=== PATIENT | female | born 1940 | race Caucasian/White ===

== ENCOUNTER 2018-06-11 19:08 | Emergency (ER) | payer MEDICARE, OTHER ==
[~2018-06-11] VITALS: Ht 157.5 cm; Wt 54.4 kg
[2018-06-11 19:37] VITALS: BP 183/60
[2018-06-11] MEDS ORDERED: KETOROLAC TROMETH 60MG/2ML VIAL IM ONE (22:15)
== END 2018-06-11 23:14 | disposition home or self-care (01) ==
LOC: ER 19:12
DX: S13.4XXA Sprain of ligaments of cervical spine, initial encounter (principal); R51 Headache; V49.49XA Driver injured in collision with other motor vehicles in traffic accident, initial encounter; Y93.I9 Activity, other involving external motion; Y92.89 Other specified places as the place of occurrence of the external cause; Y99.8 Other external cause status
CPT/HCPCS: 70450; 72125; 96372; 99284; J1885

== ENCOUNTER 2021-07-22 22:35 | Emergency (ER) | payer OTHER ==
[~2021-07-22] VITALS: Ht 157.5 cm; Wt 52.2 kg
[2021-07-22] MEDS ORDERED: fentaNYL CITRATE 100 MCG/2 ML VL IV ONE (23:00)
[2021-07-22 23:11] LABS: Basophils # (auto) 0.1 10 ^3/uL (0-0.2); Basophils % (auto) 0.7 % (0.0-2.0); Eosinophils # (auto) 0.1 10 ^3/uL (0-0.8); Eosinophils % (auto) 1.2 % (0.0-7.0); Hematocrit 38.8 % (36.0-46.0); Hemoglobin 13.2 g/dL (12.2-16.2); Lymphocytes # (auto) 3.1 10 ^3/uL (0.4-5.4); Lymphocytes % (auto) 32.4 % (10.0-50.0); Mean Corpuscular Hemoglobin 27.8 pg (28.0-32.0); Mean Corpuscular Hgb Conc. 34.1 g/dL (32.0-36.0); Mean Corpuscular Volume 81.5 fL (80.0-100.0); Monocytes # (auto) 0.5 10 ^3/uL (0-1.3); Monocytes % (auto) 5.8 % (0.0-12.0); Neutrophils # (auto) 5.7 10 ^3/uL (1.6-8.6); Neutrophils % (auto) 59.9 % (37.0-80.0); Nucleated Red Blood Cells % 0.2 %; Red Blood Cells 4.76 10^6/uL (4.0-5.20); Red Cell Distribution Width 14.3 % (11.8-14.3); White Blood Cell 9.5 10^3/uL (4.4-10.8)
[2021-07-22 23:26] LABS: Albumin 3.9 g/dL (3.4-5.0); Calcium 9.6 mg/dL (8.5-10.1); Potassium 4.1 mmol/L (3.5-5.1)
[2021-07-22 23:28] LABS: BUN/Creatinine Ratio 22.6
[2021-07-22 23:30] LABS: Bilirubin, Total 0.4 mg/dL (0.2-1.0); Total Protein 7.2 g/dL (6.4-8.2)
[2021-07-23] MEDS ORDERED: SODIUM CHLORIDE 0.9% 1,000 ML IV ONE (01:15)
[2021-07-23] MEDS ORDERED: fentaNYL CITRATE 100 MCG/2 ML VL IV ONE ×2 (01:45→07:45)
[2021-07-23 05:08] LABS: Urine Bacteria NONE SEEN /hpf (None Seen); Urine Blood Negative /uL (Negative); Urine Specific Gravity 1.021 (1.001-1.035); Urine WBC 42 /hpf (0 - 5)
[2021-07-23] MEDS ORDERED: cefTRIAXone 1GM/50ML D5W 50 ML IV ONE (06:00)
[2021-07-23] MEDS ORDERED: NITR-87 PO (06:01)
[2021-07-23 10:00] VITALS: BP 149/56
[2021-07-23] MEDS ORDERED: TRAM50TA2 PO ×2 (14:35→16:03)
== END 2021-07-23 13:44 | disposition home or self-care (01) ==
LOC: ER 22:35
DX: N39.0 Urinary tract infection, site not specified (principal); E11.9 Type 2 diabetes mellitus without complications; E78.5 Hyperlipidemia, unspecified; I10 Essential (primary) hypertension; Z87.442 Personal history of urinary calculi
CPT/HCPCS: 36415; 74176; 76775; 80053; 81001; 84484; 85025; 87426; 96361; 96365; 96375; 96376; 99285; J0696; J3010; J7030

== ENCOUNTER 2022-01-30 12:09 | Inpatient (IN) | payer OTHER ==
[~2022-01-30] VITALS: Ht 157.5 cm; Wt 54.1 kg
[~2022-01-30 12:09] MED LIST: NITR-87 PO; TRAM50TA2 PO
[2022-01-30 13:29] LABS: Basophils # (auto) 0 10 ^3/uL (0-0.2); Basophils % (auto) 0.3 % (0.0-2.0); Eosinophils # (auto) 0 10 ^3/uL (0-0.8); Eosinophils % (auto) 0.2 % (0.0-7.0); Hematocrit 41.9 % (36.0-46.0); Hemoglobin 13.9 g/dL (12.2-16.2); Lymphocytes # (auto) 1.5 10 ^3/uL (0.4-5.4); Lymphocytes % (auto) 14.9 % (10.0-50.0); Mean Corpuscular Hemoglobin 27.8 pg (28.0-32.0); Mean Corpuscular Hgb Conc. 33.3 g/dL (32.0-36.0); Mean Corpuscular Volume 83.4 fL (80.0-100.0); Monocytes # (auto) 0.4 10 ^3/uL (0-1.3); Monocytes % (auto) 4.1 % (0.0-12.0); Neutrophils # (auto) 8.1 10 ^3/uL (1.6-8.6); Neutrophils % (auto) 80.5 % (37.0-80.0); Red Blood Cells 5.02 10^6/uL (4.0-5.20); Red Cell Distribution Width 14.4 % (11.8-14.3); White Blood Cell 10.1 10^3/uL (4.4-10.8)
[2022-01-30 13:56] LABS: Albumin 3.8 g/dL (3.4-5.0); BUN/Creatinine Ratio 26.2; Calcium 9.5 mg/dL (8.5-10.1); Potassium 4.8 mmol/L (3.5-5.1); Total Protein 7.3 g/dL (6.4-8.2)
[2022-01-30] MEDS ORDERED: TETANUS-DIPTH-ACEL PERTUSSIS 0.5ML SYR Tdap IM ONE (18:00)
[2022-01-30] MEDS ORDERED: LIDOCAINE 1% HCL (LOCAL ANESTH.) INJ 20ML MDV IJ ONE (18:00)
[2022-01-30] MEDS ORDERED: cefTRIAXone 1GM/50ML D5W 50 ML IV ONE (18:00)
[2022-01-30] MEDS ORDERED: HYDROcodone-ACET 5/325MG TAB PO ONE (19:45)
[2022-01-30] MEDS ORDERED: DOCUSATE SOD 100 MG CAP PO PRN (22:00)
[2022-01-30] MEDS ORDERED: ONDANSETRON HCL 4 MG/2 ML VIAL IV PRN (22:00)
[2022-01-30] MEDS ORDERED: ACETAMINOPHEN 325 MG TAB PO PRN (22:00)
[2022-01-30] MEDS ORDERED: DEXTROSE (50%) 50ML SYRG IV PRN (22:15)
[2022-01-30] MEDS: FAMOTIDINE (10MG/ML) 2ML VL IV SCH (22:27)
[2022-01-30] MEDS: HYDROcodone-ACET 5/325MG TAB PO PRN (22:27)
[2022-01-30] MEDS: SODIUM CHLOR 0.9% PF (SALINE LOCK) 10ML VIAL/SYR IV SCH (23:22)
[2022-01-30] MEDS ORDERED: NITROGLYCERIN 0.4 MG SL TAB SL PRN (23:45)
[2022-01-30] MEDS ORDERED: MORPHINE SULFATE INJ 2 MG/ml SYRG IV PRN (23:45)
[2022-01-31] MEDS: HYDROcodone-ACET 5/325MG TAB PO PRN ×2 (05:15→14:39)
[2022-01-31 06:04] LABS: Basophils # (auto) 0.1 10 ^3/uL (0-0.2); Basophils % (auto) 0.6 % (0.0-2.0); Eosinophils # (auto) 0.1 10 ^3/uL (0-0.8); Eosinophils % (auto) 1.3 % (0.0-7.0); Hematocrit 37.9 % (36.0-46.0); Hemoglobin 13.1 g/dL (12.2-16.2); Lymphocytes # (auto) 2.4 10 ^3/uL (0.4-5.4); Lymphocytes % (auto) 30.6 % (10.0-50.0); Mean Corpuscular Hemoglobin 28.5 pg (28.0-32.0); Mean Corpuscular Hgb Conc. 34.4 g/dL (32.0-36.0); Mean Corpuscular Volume 82.8 fL (80.0-100.0); Monocytes # (auto) 0.5 10 ^3/uL (0-1.3); Monocytes % (auto) 6.9 % (0.0-12.0); Neutrophils # (auto) 4.8 10 ^3/uL (1.6-8.6); Neutrophils % (auto) 60.6 % (37.0-80.0); Nucleated Red Blood Cells % 0.2 %; Red Blood Cells 4.58 10^6/uL (4.0-5.20); Red Cell Distribution Width 14.4 % (11.8-14.3); White Blood Cell 7.9 10^3/uL (4.4-10.8)
[2022-01-31] MEDS: SODIUM CHLOR 0.9% PF (SALINE LOCK) 10ML VIAL/SYR IV SCH ×3 (06:24→22:00)
[2022-01-31 06:27] LABS: Albumin 3.4 g/dL (3.4-5.0); BUN/Creatinine Ratio 31.3; Calcium 9.1 mg/dL (8.5-10.1)
[2022-01-31 06:30] LABS: Bilirubin, Total 0.9 mg/dL (0.2-1.0); Total Protein 6.5 g/dL (6.4-8.2)
[2022-01-31] MEDS: InsuLIN REG 1unit/0.01ml Soln (100units/ml) SC SCH ×4 (07:00→22:00)
[2022-01-31] MEDS: ACCU-CHEK COMFORT CURVE STRIP VI SCH ×4 (07:11→22:03)
[2022-01-31] MEDS: FAMOTIDINE (10MG/ML) 2ML VL IV SCH ×2 (09:42→22:00)
[2022-01-31 10:51] VITALS: BP 120/43
[2022-01-31] MEDS ORDERED: LISINOPRIL 20 MG TAB PO SCH (13:45)
[2022-01-31] MEDS ORDERED: ALBUTEROL SULF HFA 90MCG INH 200DOSE IN SCH (14:00)
[2022-01-31] MEDS ORDERED: ALBUTEROL SULF 2.5 MG/0.5ML(0.5%) NEB SOLN NEB SCH (14:00)
[2022-01-31 19:32] VITALS: BP 150/108
[2022-01-31] MEDS ORDERED: LISI20TA28 PO (20:00)
[2022-01-31] MEDS ORDERED: NITR100C6 PO (20:00)
[2022-01-31] MEDS ORDERED: SIMV-8 PO (20:00)
[2022-01-31] MEDS ORDERED: NAP500T PO (20:00)
[2022-01-31] MEDS ORDERED: GLIP-110 PO (20:00)
[2022-01-31 22:00] VITALS: BP 156/57
[2022-01-31] MEDS ORDERED: ATORVASTATIN 20 MG TAB PO SCH (22:00)
[2022-01-31] MEDS ORDERED: hydrALAZINE HCL 20 MG/ML VL IV PRN (22:00)
[2022-02-01] MEDS ORDERED: cefTRIAXone 1GM/50ML D5W 50 ML IV SCH (09:00)
[2022-02-01] MEDS ORDERED: ENOXAPARIN SOD 40 MG/0.4 ML SYRINGE SC SCH (10:00)
== END 2022-01-31 22:30 | disposition left against medical advice (07) | DRG 312 ==
LOC: ER 12:12 → TELE 23:44 → TELE-WESTW 01-31 18:32
PROVIDERS: ADMIT Nurse Practitioner Family; ATTEND Nurse Practitioner Family
DX: R55 Syncope and collapse (principal); Z20.822 Contact with and (suspected) exposure to COVID-19; Z53.29 Procedure and treatment not carried out because of patient's decision for other reasons; E11.9 Type 2 diabetes mellitus without complications; E78.5 Hyperlipidemia, unspecified; S09.90XA Unspecified injury of head, initial encounter; I10 Essential (primary) hypertension; W18.39XA Other fall on same level, initial encounter; J44.9 Chronic obstructive pulmonary disease, unspecified; Z87.442 Personal history of urinary calculi; Y93.89 Activity, other specified; Y92.89 Other specified places as the place of occurrence of the external cause; Y99.8 Other external cause status; S01.81XA Laceration without foreign body of other part of head, initial encounter
CPT/HCPCS: 12002; 36415; 70450; 70551; 71045; 80053; 82962; 84484; 85025; 87426; 90471; 90715; 93005; 93306; 94640; 96365; G0378; J0696; J2001; J3490

== ENCOUNTER 2022-02-09 17:14 | Emergency (ER) | payer OTHER ==
[~2022-02-09] VITALS: Ht 157.5 cm; Wt 54.8 kg
[~2022-02-09 17:14] MED LIST changes: +GLIP-110 PO; +LISI20TA28 PO; +NAP500T PO; +NITR100C6 PO; +SIMV-8 PO
[2022-02-09 18:31] VITALS: BP 157/77
== END 2022-02-09 20:40 | disposition home or self-care (01) ==
LOC: ER 17:14
DX: S01.81XD Laceration without foreign body of other part of head, subsequent encounter (principal); E78.5 Hyperlipidemia, unspecified; I10 Essential (primary) hypertension; Z87.442 Personal history of urinary calculi; W22.8XXD Striking against or struck by other objects, subsequent encounter; E11.9 Type 2 diabetes mellitus without complications

== ENCOUNTER 2022-08-27 15:16 | Inpatient (IN) | payer OTHER ==
[~2022-08-27] VITALS: Ht 165.1 cm; Wt 51.7 kg
[~2022-08-27 15:16] MED LIST changes: -LISI20TA28 PO; +LISI20TA56 PO; -SIMV-8 PO; +SIMV20TA20 PO
[2022-08-27] MEDS ORDERED: ONDANSETRON HCL 4 MG/2 ML VIAL IV ONE (19:30)
[2022-08-27] MEDS ORDERED: HYDROmorphone HCL 2 MG/ML VL/or syr IV ONE (19:30)
[2022-08-27 20:13] LABS: Basophils # (auto) 0.1 10 ^3/uL (0-0.2); Basophils % (auto) 0.3 % (0.0-2.0); Eosinophils # (auto) 0 10 ^3/uL (0-0.8); Hematocrit 41.3 % (36.0-46.0); Hemoglobin 13.9 g/dL (12.2-16.2); Lymphocytes # (auto) 1.2 10 ^3/uL (0.4-5.4); Mean Corpuscular Hemoglobin 27.9 pg (28.0-32.0); Mean Corpuscular Hgb Conc. 33.6 g/dL (32.0-36.0); Mean Corpuscular Volume 82.9 fL (80.0-100.0); Monocytes # (auto) 1.3 10 ^3/uL (0-1.3); Monocytes % (auto) 7.8 % (0.0-12.0); Neutrophils # (auto) 14.7 10 ^3/uL (1.6-8.6); Neutrophils % (auto) 84.9 % (37.0-80.0); Red Blood Cells 4.99 10^6/uL (4.0-5.20); Red Cell Distribution Width 14.1 % (11.8-14.3); White Blood Cell 17.3 10^3/uL (4.4-10.8)
[2022-08-27 20:18] LABS: Urine Bacteria NONE SEEN /hpf (None Seen); Urine Blood TRACE /uL (Negative); Urine Mucus FEW (None Seen); Urine Specific Gravity 1.021 (1.001-1.035); Urine WBC 2 /hpf (0 - 5)
[2022-08-27 20:45] LABS: BUN/Creatinine Ratio 40.8 (10.0-20.0); Calcium 9.5 mg/dL (8.5-10.1); Potassium 3.9 mmol/L (3.5-5.1)
[2022-08-27 20:50] LABS: Barbiturate Scree,Urine NEGATIVE (NEGATIVE); Cannabinoid Screen, Urine NEGATIVE (NEGATIVE)
[2022-08-27 20:58] LABS: Amphetamine Screen, Urine NEGATIVE (NEGATIVE); Benzodiazephine Screen, Urine POSITIVE (NEGATIVE); Cocaine Screen, Urine NEGATIVE (NEGATIVE); Opiate Scree,Urine NEGATIVE (NEGATIVE); Phencyclidine Screen, Urine NEGATIVE (NEGATIVE)
[2022-08-27] MEDS ORDERED: SODIUM CHLORIDE 0.9% 1,000 ML IV ONE (21:45)
[2022-08-27] MEDS ORDERED: NALOXONE HCL 0.4 MG/ML VIAL IV ONE (21:45)
[2022-08-27] MEDS ORDERED: ACETAMINOPHEN 650 MG RECT SUPP PR ONE (21:45)
[2022-08-27] MEDS ORDERED: cefTRIAXone 1GM/50ML D5W 50 ML IV ONE (22:00)
[2022-08-27] MEDS ORDERED: DEXTROSE (50%) 50ML SYRG IV PRN (23:45)
[2022-08-27] MEDS ORDERED: levoFLOXacin 500MG 100 ML IV ONE (23:45)
[2022-08-27] MEDS ORDERED: hydrALAZINE HCL 20 MG/ML VL IV PRN (23:45)
[2022-08-27] MEDS ORDERED: VANCOMYCIN PER PHARMACY 0 MG IV SCH (23:45)
[2022-08-27] MEDS ORDERED: ACETAMINOPHEN 650 MG RECT SUPP PR PRN (23:45)
[2022-08-27] MEDS ORDERED: ONDANSETRON HCL 4 MG/2 ML VIAL IV PRN (23:45)
[2022-08-28] MEDS ORDERED: VANCOMYCIN 1GM/250ML 250 ML IV ONE (00:15)
[2022-08-28 06:27] LABS: Basophils # (auto) 0.1 10 ^3/uL (0-0.2); Basophils % (auto) 0.4 % (0.0-2.0); Eosinophils # (auto) 0 10 ^3/uL (0-0.8); Hematocrit 38.3 % (36.0-46.0); Lymphocytes # (auto) 1.5 10 ^3/uL (0.4-5.4); Lymphocytes % (auto) 10.2 % (10.0-50.0); Mean Corpuscular Hemoglobin 27.8 pg (28.0-32.0); Mean Corpuscular Hgb Conc. 33.9 g/dL (32.0-36.0); Monocytes # (auto) 1.3 10 ^3/uL (0-1.3); Monocytes % (auto) 8.6 % (0.0-12.0); Neutrophils # (auto) 11.9 10 ^3/uL (1.6-8.6); Neutrophils % (auto) 80.8 % (37.0-80.0); Red Blood Cells 4.67 10^6/uL (4.0-5.20); White Blood Cell 14.7 10^3/uL (4.4-10.8)
[2022-08-28 06:46] LABS: Potassium 3.8 mmol/L (3.5-5.1)
[2022-08-28 06:50] LABS: BUN/Creatinine Ratio 46.8 (10.0-20.0)
[2022-08-28] MEDS: InsuLIN REG 1unit/0.01ml Soln (100units/ml) SC SCH ×4 (06:56→22:05)
[2022-08-28] MEDS: ACCU-CHEK COMFORT CURVE STRIP VI SCH ×4 (06:56→22:03)
[2022-08-28] MEDS ORDERED: LORazepam 2MG/ML-1ML VIAL IV PRN (17:00)
[2022-08-28] MEDS: VANCOMYCIN 1GM/250ML 250 ML IV SCH (21:59)
[2022-08-29] MEDS: ACCU-CHEK COMFORT CURVE STRIP VI SCH ×4 (06:36→22:11)
[2022-08-29] MEDS: InsuLIN REG 1unit/0.01ml Soln (100units/ml) SC SCH ×4 (06:40→22:00)
[2022-08-29 08:06] LABS: Basophils # (auto) 0 10 ^3/uL (0-0.2); Basophils % (auto) 0.1 % (0.0-2.0); Eosinophils # (auto) 0 10 ^3/uL (0-0.8); Hemoglobin 12.7 g/dL (12.2-16.2); Lymphocytes # (auto) 1.3 10 ^3/uL (0.4-5.4); Lymphocytes % (auto) 9.6 % (10.0-50.0); Mean Corpuscular Hemoglobin 28.1 pg (28.0-32.0); Mean Corpuscular Hgb Conc. 34.4 g/dL (32.0-36.0); Mean Corpuscular Volume 81.8 fL (80.0-100.0); Monocytes # (auto) 0.5 10 ^3/uL (0-1.3); Monocytes % (auto) 4.1 % (0.0-12.0); Neutrophils # (auto) 11.6 10 ^3/uL (1.6-8.6); Neutrophils % (auto) 86.2 % (37.0-80.0); Red Blood Cells 4.52 10^6/uL (4.0-5.20); Red Cell Distribution Width 13.9 % (11.8-14.3); White Blood Cell 13.5 10^3/uL (4.4-10.8)
[2022-08-29 08:28] LABS: Calcium 9.1 mg/dL (8.5-10.1); Potassium 3.8 mmol/L (3.5-5.1)
[2022-08-29 13:30] VITALS: BP 166/66
[2022-08-29 14:30] VITALS: BP 177/68
[2022-08-29 16:30] VITALS: BP 156/62
[2022-08-29 17:00] VITALS: BP 156/62
[2022-08-29] MEDS: VANCOMYCIN 1GM/250ML 250 ML IV SCH (22:11)
[2022-08-29 22:21] VITALS: BP 130/69
[2022-08-30 05:42] LABS: Basophils # (auto) 0 10 ^3/uL (0-0.2); Basophils % (auto) 0.2 % (0.0-2.0); Eosinophils # (auto) 0 10 ^3/uL (0-0.8); Eosinophils % (auto) 0.1 % (0.0-7.0); Hemoglobin 13.3 g/dL (12.2-16.2); Lymphocytes # (auto) 1.4 10 ^3/uL (0.4-5.4); Lymphocytes % (auto) 10.9 % (10.0-50.0); Mean Corpuscular Hemoglobin 28.1 pg (28.0-32.0); Mean Corpuscular Hgb Conc. 34.1 g/dL (32.0-36.0); Mean Corpuscular Volume 82.5 fL (80.0-100.0); Monocytes # (auto) 0.8 10 ^3/uL (0-1.3); Neutrophils # (auto) 10.8 10 ^3/uL (1.6-8.6); Neutrophils % (auto) 82.8 % (37.0-80.0); Red Blood Cells 4.73 10^6/uL (4.0-5.20); Red Cell Distribution Width 13.8 % (11.8-14.3); White Blood Cell 13.1 10^3/uL (4.4-10.8)
[2022-08-30 05:54] VITALS: BP 146/71
[2022-08-30 05:55] LABS: Calcium 9.6 mg/dL (8.5-10.1); Potassium 3.7 mmol/L (3.5-5.1)
[2022-08-30 05:58] LABS: BUN/Creatinine Ratio 46.9 (10.0-20.0)
[2022-08-30] MEDS: InsuLIN REG 1unit/0.01ml Soln (100units/ml) SC SCH ×4 (07:00→22:28)
[2022-08-30] MEDS: ACCU-CHEK COMFORT CURVE STRIP VI SCH ×4 (07:00→22:29)
[2022-08-30 09:00] VITALS: BP 149/63
[2022-08-30 09:24] LABS: Folate (Folic Acid) 5.59 ng/mL (5.38-24)
[2022-08-30 13:00] VITALS: BP 148/62
[2022-08-30 17:00] VITALS: BP 147/60
[2022-08-30 22:00] VITALS: BP 143/59
[2022-08-30] MEDS: VANCOMYCIN 1GM/250ML 250 ML IV SCH (22:29)
[2022-08-31 05:00] VITALS: BP 123/44
[2022-08-31] MEDS: ACCU-CHEK COMFORT CURVE STRIP VI SCH ×3 (06:25→17:00)
[2022-08-31] MEDS: InsuLIN REG 1unit/0.01ml Soln (100units/ml) SC SCH ×3 (06:32→17:00)
[2022-08-31 11:06] VITALS: BP 140/53
[2022-08-31] MEDS ORDERED: VANCOMYCIN 1GM/250ML 250 ML IV SCH (14:00)
[2022-08-31 14:29] VITALS: BP 140/53
== END 2022-08-31 18:50 | disposition home health service (06) | DRG 92 ==
LOC: EDBD 15:16 → ER 15:16 → TELE 23:40 → TELE-EAST 08-29 13:08
PROVIDERS: ADMIT Nurse Practitioner Family; ATTEND Internal Medicine
DX: G92.8 Other toxic encephalopathy (principal); S42.301A Unspecified fracture of shaft of humerus, right arm, initial encounter for closed fracture; D72.829 Elevated white blood cell count, unspecified; E86.0 Dehydration; I10 Essential (primary) hypertension; S09.90XA Unspecified injury of head, initial encounter; W18.39XA Other fall on same level, initial encounter; E11.9 Type 2 diabetes mellitus without complications; E78.5 Hyperlipidemia, unspecified; Z87.442 Personal history of urinary calculi; Z80.0 Family history of malignant neoplasm of digestive organs; Z83.3 Family history of diabetes mellitus; Y93.89 Activity, other specified; Y92.89 Other specified places as the place of occurrence of the external cause; Y99.8 Other external cause status; Z88.5 Allergy status to narcotic agent
CPT/HCPCS: 36415; 70450; 70551; 71045; 71250; 72125; 73130; 73200; 74176; 80048; 80202; 80307; 80320; 81001; 82140; 82607; 82746; 82962; 83605; 83690; 84443; 85025; 87040; 87086; 93005; 95819; 96361; 96365; 96375; 97110; 97116; 97163; 97530; G0378; J0696; J1815; J1956; J2405

== ENCOUNTER 2022-09-20 11:32 | Observation (INO) | payer OTHER ==
[~2022-09-20] VITALS: Ht 167.6 cm; Wt 45.0 kg
[~2022-09-20 11:32] MED LIST changes: -NAP500T PO; -NITR-87 PO; -NITR100C6 PO
[2022-09-20] MEDS ORDERED: SODIUM CHLORIDE 0.9% 500 ML IVB ONE (11:45)
[2022-09-20 12:12] LABS: Basophils # (auto) 0 10 ^3/uL (0-0.2); Eosinophils # (auto) 0 10 ^3/uL (0-0.8); Lymphocytes # (auto) 1.1 10 ^3/uL (0.4-5.4)
[2022-09-20 12:13] LABS: Basophils % (auto) 0.3 % (0.0-2.0); Hemoglobin 12.3 g/dL (12.2-16.2); Lymphocytes % (auto) 9.4 % (10.0-50.0); Mean Corpuscular Hemoglobin 27.2 pg (28.0-32.0); Mean Corpuscular Hgb Conc. 32.5 g/dL (32.0-36.0); Mean Corpuscular Volume 83.7 fL (80.0-100.0); Monocytes % (auto) 8.6 % (0.0-12.0); Neutrophils # (auto) 9.8 10 ^3/uL (1.6-8.6); Neutrophils % (auto) 81.7 % (37.0-80.0); Red Blood Cells 4.54 10^6/uL (4.0-5.20); Red Cell Distribution Width 14.1 % (11.8-14.3)
[2022-09-20 12:25] LABS: INR 1.21 (0.9-1.15); Partial Thromboplastin Time 40.5 SEC (24.5-34.5)
[2022-09-20 12:34] LABS: Anion Gap 10 (5-15); BUN/Creatinine Ratio 38.5 (10.0-20.0); Blood Urea Nitrogen 30 mg/dL (7-18); Carbon Dioxide 21 mmol/L (21-32); Chloride 106 mmol/L (98-107); GFR African American 91 mL/min; Glucose 146 mg/dL (74-106); Potassium 3.9 mmol/L (3.5-5.1); Sodium 137 mmol/L (136-145)
[2022-09-20 12:35] LABS: Alanine Aminotransferase 14 U/L (13-56); Albumin 2.5 g/dL (3.4-5.0); Calcium 8.8 mg/dL (8.5-10.1); GFR Non-African American 75 mL/min; Magnesium 1.8 mg/dL (1.6-2.6)
[2022-09-20 12:38] LABS: Alkaline Phosphatase 72 U/L (45-117); Aspartate Aminotransferase 26 U/L (15-37); Bilirubin, Total 1.1 mg/dL (0.2-1.0); Total Protein 6.9 g/dL (6.4-8.2)
[2022-09-20 12:48] LABS: Blood Alcohol < 3.0 mg/dL (<10)
[2022-09-20 17:52] LABS: Urine Bacteria NONE SEEN /hpf (None Seen); Urine Blood Negative /uL (Negative); Urine Mucus MODERATE (None Seen); Urine Specific Gravity 1.021 (1.001-1.035); Urine WBC 6 /hpf (0 - 5)
[2022-09-20] MEDS ORDERED: NITROGLYCERIN 0.4 MG SL TAB SL PRN (22:15)
[2022-09-20] MEDS ORDERED: DOCUSATE SOD 100 MG CAP PO PRN (22:15)
[2022-09-20] MEDS ORDERED: MORPHINE SULFATE INJ 2 MG/ml SYRG IV PRN (22:15)
[2022-09-20] MEDS ORDERED: ONDANSETRON HCL 4 MG/2 ML VIAL IV PRN (22:15)
[2022-09-20] MEDS ORDERED: ACETAMINOPHEN 325 MG TAB PO PRN (22:15)
[2022-09-20 23:53] LABS: Alcohol, Urine < 3.0 mg/dL (0-10); Amphetamine Screen, Urine NEGATIVE (NEGATIVE); Barbiturate Scree,Urine NEGATIVE (NEGATIVE); Benzodiazephine Screen, Urine POSITIVE (NEGATIVE); Cannabinoid Screen, Urine NEGATIVE (NEGATIVE); Cocaine Screen, Urine NEGATIVE (NEGATIVE)
[2022-09-21 00:05] LABS: Opiate Scree,Urine NEGATIVE (NEGATIVE); Phencyclidine Screen, Urine NEGATIVE (NEGATIVE)
[2022-09-21] MEDS ORDERED: DEXTROSE (50%) 50ML SYRG IV PRN (02:15)
[2022-09-21] MEDS: ACCU-CHEK COMFORT CURVE STRIP VI SCH ×4 (05:08→22:23)
[2022-09-21 06:17] LABS: Basophils # (auto) 0 10 ^3/uL (0-0.2); Basophils % (auto) 0.3 % (0.0-2.0); Eosinophils # (auto) 0 10 ^3/uL (0-0.8); Eosinophils % (auto) 0.1 % (0.0-7.0); Hematocrit 38.1 % (36.0-46.0); Hemoglobin 12.7 g/dL (12.2-16.2); Lymphocytes # (auto) 0.8 10 ^3/uL (0.4-5.4); Lymphocytes % (auto) 7.5 % (10.0-50.0); Mean Corpuscular Hemoglobin 27.6 pg (28.0-32.0); Mean Corpuscular Hgb Conc. 33.4 g/dL (32.0-36.0); Mean Corpuscular Volume 82.7 fL (80.0-100.0); Monocytes # (auto) 0.8 10 ^3/uL (0-1.3); Monocytes % (auto) 7.4 % (0.0-12.0); Neutrophils # (auto) 9.5 10 ^3/uL (1.6-8.6); Neutrophils % (auto) 84.7 % (37.0-80.0); Nucleated Red Blood Cells % 0.1 %; Red Blood Cells 4.61 10^6/uL (4.0-5.20); Red Cell Distribution Width 14.3 % (11.8-14.3); White Blood Cell 11.3 10^3/uL (4.4-10.8)
[2022-09-21 06:48] LABS: Calcium 9.8 mg/dL (8.5-10.1); Potassium 4.1 mmol/L (3.5-5.1)
[2022-09-21 06:50] LABS: BUN/Creatinine Ratio 46.8 (10.0-20.0)
[2022-09-21] MEDS: InsuLIN REG 1unit/0.01ml Soln (100units/ml) SC SCH ×4 (06:59→22:00)
[2022-09-21] MEDS: ENOXAPARIN SOD 40 MG/0.4 ML SYRINGE SC SCH (10:00)
[2022-09-22 06:24] LABS: Basophils # (auto) 0 10 ^3/uL (0-0.2); Basophils % (auto) 0.2 % (0.0-2.0); Eosinophils # (auto) 0 10 ^3/uL (0-0.8); Eosinophils % (auto) 0.1 % (0.0-7.0); Hematocrit 36.5 % (36.0-46.0); Hemoglobin 12.5 g/dL (12.2-16.2); Lymphocytes # (auto) 1.1 10 ^3/uL (0.4-5.4); Lymphocytes % (auto) 10.5 % (10.0-50.0); Mean Corpuscular Hemoglobin 28.1 pg (28.0-32.0); Mean Corpuscular Hgb Conc. 34.1 g/dL (32.0-36.0); Mean Corpuscular Volume 82.2 fL (80.0-100.0); Monocytes # (auto) 0.5 10 ^3/uL (0-1.3); Monocytes % (auto) 5.1 % (0.0-12.0); Neutrophils # (auto) 8.6 10 ^3/uL (1.6-8.6); Neutrophils % (auto) 84.1 % (37.0-80.0); Nucleated Red Blood Cells % 0.1 %; Red Blood Cells 4.44 10^6/uL (4.0-5.20); Red Cell Distribution Width 14.4 % (11.8-14.3); White Blood Cell 10.2 10^3/uL (4.4-10.8)
[2022-09-22] MEDS: ACCU-CHEK COMFORT CURVE STRIP VI SCH ×2 (06:30→11:47)
[2022-09-22] MEDS: InsuLIN REG 1unit/0.01ml Soln (100units/ml) SC SCH ×2 (06:30→11:52)
[2022-09-22 06:37] LABS: Potassium 3.8 mmol/L (3.5-5.1)
[2022-09-22 06:42] LABS: BUN/Creatinine Ratio 66.1 (10.0-20.0); Calcium 10.1 mg/dL (8.5-10.1)
[2022-09-22] MEDS: ENOXAPARIN SOD 40 MG/0.4 ML SYRINGE SC SCH (10:00)
[2022-09-22 14:30] VITALS: BP 168/67
[2022-09-23 05:07] LABS: RPR Non Reactive (Non Reactive)
== END 2022-09-22 15:51 | disposition still patient (30) ==
LOC: EDBD 11:32 → ER 11:32 → TELE 22:24
PROVIDERS: ADMIT Nurse Practitioner Family; ATTEND Nurse Practitioner Family
DX: G92.8 Other toxic encephalopathy (principal); E11.9 Type 2 diabetes mellitus without complications; D72.829 Elevated white blood cell count, unspecified; E03.9 Hypothyroidism, unspecified; I10 Essential (primary) hypertension; E78.5 Hyperlipidemia, unspecified; G89.29 Other chronic pain; M54.50 Low back pain, unspecified; F03.90 Unspecified dementia, unspecified severity, without behavioral disturbance, psychotic disturbance, mood disturbance, and anxiety; Z91.81 History of falling; Z79.899 Other long term (current) drug therapy
CPT/HCPCS: 36415; 70450; 70551; 71045; 74176; 80048; 80053; 80307; 80320; 81001; 82140; 82607; 82962; 83605; 83735; 84443; 84484; 85025; 85610; 85730; 86592; 87040; 93005; 96360; 96361; 96372; 99285; G0378; J1650; J1815; J7040

== ENCOUNTER 2024-08-03 16:50 | Inpatient (IN) | payer OTHER ==
[~2024-08-03] VITALS: Ht 157.5 cm; Wt 47.4 kg
[2024-08-03] MEDS: SODIUM CHLORIDE 0.9% 1,000 ML IV ONE (17:00)
--- NOTE | 2024-08-03 17:40 | ED.PDOC ---
General HPI Comments 84 year old female presents to the ED via EMS with a chief complaint of RT flank pain onset 2 days. PMHx kidney stone, DM, HTN, HLD. Per EMS, patient has been experiencing RT flank pain as well as dysuria, dark yellow urine for the past 2 days. Denies fever, chills, abdominal pain, nausea, vomiting, diarrhea. No other symptoms or modifying factors present at this time. Patient was mildly hypertensive at arrival. Chief Complaint: Flank Pain Time Seen by MD: 17:25 Primary Care Provider: LARY SANTIAGO Reviewed notes: Nurses Notes, Cdl Team Truck Driver Notes, Medications, Allergies Allergies: Coded Allergies: Morphine (Verified Allergy, Severe, 09/20/22) Codeine (Verified Allergy, Unknown, 09/20/22) Home Meds Active Scripts Tramadol Hcl (Tramadol Hcl) 50 Mg Tab, 50 MG PO Q6HPRN PRN, #12 TAB moderate to severe pain Prov:SHADY BIANCHI MD 07/23/21 Reported Medications Simvastatin (Simvastatin) 20 Mg Tab, 1 TAB PO 01/31/22 Lisinopril (Lisinopril) 20 Mg Tab, 1 TAB PO DAILYPRN 01/31/22 Glipizide (Glipizide Er) 5 Mg Tab, 1 TAB PO DAILYPRN 01/31/22 Information Source: Patient, Emergency Med Personnel Mode of Arrival: EMS Severity: Moderate Timing: Days Duration: Since onset Prehospital treatment: None Onset: Spontaneous Symptoms: Dysuria History of: Kidney stone Location: (R) Flank Modifying factors: None associated signs and symptoms: Flank Pain, Dysuria Past Medical History PAST MEDICAL HISTORY: DM, Gallstones, High Lipids, HTN, Kidney Stones Surgical History: Denies all surgeries LOCKSTITCH BINDER History: No Pertinent LOCKSTITCH BINDER History Family History Family History: Unknown Social History Smoker: Non-Smoker Alcohol: Denies ETOH Use Drugs: Denies Drug Use Lives In: Home Constitutional: denies: chills, diaphoresis, fatigue, fever, malaise, sweats, weakness, others EENTM: denies: blurred vision, double vision, ear bleeding, ear discharge, ear drainage, ear pain, ear ringing, eye pain, eye redness, hearing loss, mouth pain, mouth swelling, nasal discharge, nose bleeding, nose congestion, nose pain, photophobia, tearing, throat pain, throat swelling, voice changes, others Respiratory: denies: cough, hemoptysis, orthopnea, SOB at rest, shortness of breath, SOB with excertion, stridor, wheezing, others Cardiovascular: denies: chest pain, dizzy spells, diaphoresis, Dyspnea on exertion, edema, irregular heart beat, left arm pain, lightheadedness, palpitations, PND, syncope, others Gastrointestinal: denies: abdomen distended, abdominal pain, blood streaked bowels, constipated, diarrhea, dysphagia, difficulty swallowing, hematemesis, melena, nausea, poor appetite, poor fluid intake, rectal bleeding, rectal pain, vomiting, others Genitourinary: reports: dysuria, flank pain; denies: abnormal vagina bleeding, burning, dyspareunia, frequency, hematuria, incontinence, pain, , vagina discharge, urgency, others Neurological: denies: dizziness, fainting, headache, left sided numbness, left sided weakness, numbness, paresthesia, pre-existing deficit, right sided numbness, right sided weakness, seizure, speech problems, tingling, tremors, w eakness, others Musculoskeletal: denies: back pain, gout, joint pain, joint swelling, muscle pain, muscle stiffness, neck pain, others Integumetry: denies: bruises, change in color, change in hair/nails, dryness, laceration, lesions, lumps, rash, wounds, others Allergic/Immunocompromised: denies: Difficulty Healing, Frequent Infections, Hives, Itching, others Hematologic/Lymphatic: denies: anemia, blood clots, easy bleeding, easy bruising, swollen glands, others Endocrine: denies: excessive hunger, excessive sweating, excessive thirst, excessive urination, flushing, intolerance to cold, intolerance to heat, unexplained weight gain, unexplained weight loss, others Psychiatric: denies: anxiety, bipolar disorder, depression, hopeless, panic disorder, schizophrenia, sleepless, suicidal, others All Other Systems: Reviewed and Negative Physical Exam General Appearance: Moderate Distress (Due to right-sided flank and abdominal pain concerns.), Normal HEENT: Normal ENT Inspection, Pharynx Normal, TMs Normal Neck: Full Range of Motion, Non-Tender, Normal, Normal Inspection Respiratory: Chest Non-Tender, Lungs Clear, No Accessory Muscle Use, No R espiratory Distress, Normal Breath Sounds Cardiovascular: No Edema, No JVD, No Murmur, No Gallop, Normal Peripheral Pulses, Regular Rate/Rhythm Breast Exam: Deferred Gastrointestinal: No Pulsatile Mass, Normal Bowel Sounds, Other (Diffuse right- sided flank pain extending into the abdomen. No signs of trauma. No pulsatile masses. No definitive CVA tenderness.) Genitalia: Deferred Pelvic: Deferred Rectal: Deferred Extremities: No calf tenderness, Normal capillary refill, No pedal edema Musculoskeletal : Apperance: Normal Neurologic: Alert, Normal Affect Cerebellar Function: NOT DONE Reflexes: NOT DONE Skin: Dry, Normal Color, Warm Lymphatic: No Adenopathy Was a procedure done? Was a procedure done?: No Differential Diagnosis Kidney stone (Female): Cholelithiasis, Urolithiasis Kidney stone (Male): Other (Cholelithiasis, occlusive kidney stone, pyelonephritis, UTI, flank pain, musculoskeletal pain, abdominal pain, constipation) X-Ray, Labs, Meds, VS Vital Signs Date Time Temp Pulse Resp B/P (MAP) Pulse Ox O2 Delivery O2 Flow Rate FiO2 08/03/24 21:08 77 27 154/61 08/03/24 21:00 99 27 100 Room Air* 0 21 08/03/24 20:40 98.4 77 27 154/51 (85) 99 98.4 08/03/24 19:55 97.9 92 25 154/51 (85) 100 97.9 08/03/24 19:55 92 25 100 Room Air* 0 21 08/03/24 17:04 98.4 68 18 150/60 (90) 98 98.4 Lab Test 08/03/24 22:25 08/03/24 20:10 08/03/24 17:58 Range/Units Troponin I High Sensitivity 8 7 </=34 ng/L Urine Color Yellow Yellow Urine Clarity Turbid H Clear Urine pH 6.0 5.0-9.0 Urine Specific [place] 1.020 1.001-1.035 Urine Protein Negative Negative Urine Ketones Trace Negative Urine Blood Negative Negative /uL Urine Nitrite Negative Negative Urine Bilirubin Negative Negative Urine Urobilinogen Normal Negative mg/dL Urine Leukocyte Esterase 3+ Negative /uL Urine RBC 1 0 - 4 /hpf Urine Microscopic WBC < 1 0-5 /HPF Urine Squamous Epithelial Cells None seen <5 /hpf Urine Bacteria None seen None Seen /hpf Urine Glucose Normal Normal mg/dL White Blood Count 6.3 4.4-10.8 10^3/uL Red Blood Count 5.02 4.0-5.20 10^6/uL Hemoglobin 13.6 12.2-16.2 g/dL Hematocrit 40.9 36.0-46.0 % Mean Corpuscular Volume 81.4 80.0-100.0 fL Mean Corpuscular Hemoglobin 27.1 L 28.0-32.0 pg Mean Corpuscular Hemoglobin Concent 33.4 32.0-36.0 g/dL Red Cell Distribution Width 15.4 H 11.8-14.3 % Platelet Count 196 140-450 10^3/uL Mean Platelet Volume 7.7 6.9-10.8 fL Neutrophils (%) (Auto) 71.7 37.0-80.0 % Lymphocytes (%) (Auto) 23.3 10.0-50.0 % Monocytes (%) (Auto) 3.6 0.0-12.0 % Eosinophils (%) (Auto) 0.5 0.0-7.0 % Basophils (%) (Auto) 0.9 0.0-2.0 % Neutrophils # (Auto) 4.5 1.6-8.6 10 ^3/uL Lymphocytes # (Auto) 1.5 0.4-5.4 10 ^3/uL Monocytes # (Auto) 0.2 0-1.3 10 ^3/uL Eosinophils # (Auto) 0 0-0.8 10 ^3/uL Basophils # (Auto) 0.1 0-0.2 10 ^3/uL Nucleated Red Blood Cells 0.1 % Sodium Level 140 136-145 mmol/L Potassium Level 4.8 3.5-5.1 mmol/L Chloride Level 106 98-107 mmol/L Carbon Dioxide Level 24 20-31 mmol/L Anion Gap 10 5-15 Blood Urea Nitrogen 33 H 9-23 mg/dL Creatinine 1.02 0.550-1.02 mg/dL Glomerular Filtration Rate Calc 54 >90 mL/min BUN/Creatinine Ratio 32.4 H 10.0-20.0 Serum Glucose 119 H 74-106 mg/dL Lactic Acid Level 1.4 0.4-2.0 mmol/L Calcium Level 10.1 8.7-10.4 mg/dL Total Bilirubin 1.1 H 0.2-1.0 mg/dL Aspartate Amino Transferase (AST) 19 13-40 U/L Alanine Aminotransferase (ALT) < 9 7-40 U/L Alkaline Phosphatase 81 46-116 U/L Total Protein 7.3 5.7-8.2 g/dL Albumin 4.4 3.2-4.8 g/dL Lipase 37 12-53 U/L Current Medications Medications (Trade) Dose Ordered Sig/Nirav Route Start Time Stop Time Status Last Admin Sodium Chloride 1,000 ml @ 150 mls/hr Q6H40M ONCE IV 08/03/24 17:00 08/03/24 23:39 DC 08/03/24 17:00 Morphine Sulfate 3 mg ONCE ONCE IV 08/03/24 17:00 08/03/24 17:02 DC 08/03/24 21:08 Ondansetron HCl (Zofran Po) 4 mg ONCE ONCE PO 08/03/24 17:00 08/03/24 17:02 DC 08/03/24 21:08 Ceftriaxone Sodium 50 ml @ 100 mls/hr ONCE ONCE IV 08/03/24 22:15 08/03/24 22:44 DC 08/03/24 22:15 X-Ray, Labs, Meds, VS Comment All studies performed the ED were evaluated by me personally. EKG revealed a si nus rhythm with a rate of 61. 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 KS interval of 210 and QT interval of 433. Serum laboratories were unremarkable for any systemic concern. Urinalysis showed a leukocyte esterase burden without much white blood cell count, indicative of a early-onset UTI. CT of the abdomen and pelvis was unremarkable for any kidney stone formation or occlusion concerns resulting in hydronephrosis. Patient's pain seemed to be out of proportion to results. Discussed the case with the provider at [facility] who asked that the patient be admitted for observation. We will oblige. Patient was given a dose of antibiotics while in the ED. This patient was a [employer] patient. Contacted [facility] and they agreed for admission for observation and management. Acceptance # [id number]. Time of 1ST Reevaluation: 22:13 Reevaluation 1ST: Improved Consultation: PCP Patient Education/Counseling: Diagnosis, Treatment, Prognosis Family Education/Counseling: Diagnosis, Treatment, No Family Present Departure 1 Departure Time of Disposition: 22:15 Impression: Primary Impression: Abdominal pain Additional Impression: UTI (urinary tract infection) Disposition: ADMITTED INPATIENT Condition: Stable Discharged With: Self Critical Care Note Critical Care Time?: No Stability Stability form required: No Heart Score Heart Score: Heart Score Response (Comments) Value History Slightly Suspicious 0 EKG Repolarization Disturb 1 Age >65 2 Risk Factors No known risk factors 0 Troponin N/A 0 Total 3 I personally scribed for BRONWYN GARCIA PAC ([email or web address]) on 08/03/24 at 17:40. Electronically submitted by Akanksha Chavez ([email or web address]). BRONWYN GARCIA PAC August 03, 2024 17:40
[2024-08-03 18:09] LABS: Basophils # (auto) 0.1 10 ^3/uL (0-0.2); Basophils % (auto) 0.9 % (0.0-2.0); Eosinophils # (auto) 0 10 ^3/uL (0-0.8); Eosinophils % (auto) 0.5 % (0.0-7.0); Hematocrit 40.9 % (36.0-46.0); Hemoglobin 13.6 g/dL (12.2-16.2); Lymphocytes # (auto) 1.5 10 ^3/uL (0.4-5.4); Lymphocytes % (auto) 23.3 % (10.0-50.0); Mean Corpuscular Hemoglobin 27.1 pg (28.0-32.0); Mean Corpuscular Hgb Conc. 33.4 g/dL (32.0-36.0); Mean Corpuscular Volume 81.4 fL (80.0-100.0); Monocytes # (auto) 0.2 10 ^3/uL (0-1.3); Monocytes % (auto) 3.6 % (0.0-12.0); Neutrophils # (auto) 4.5 10 ^3/uL (1.6-8.6); Neutrophils % (auto) 71.7 % (37.0-80.0); Nucleated Red Blood Cells % 0.1 %; Platelet Count (auto) 196 10^3/uL (140-450); Red Blood Cells 5.02 10^6/uL (4.0-5.20); Red Cell Distribution Width 15.4 % (11.8-14.3); White Blood Cell 6.3 10^3/uL (4.4-10.8)
--- NOTE | 2024-08-03 18:17 | DVH ---
Procedure: CT CT AB PEL WO CON-NO ORAL OR IV 08/03/2024 05:27 PM Indication: Right-sided flank pain Comparison Study: CT CT AB PEL WO CON-NO ORAL OR IV on DOS: 09/20/22, MBHL on DOS: 01/31/22, CT ABD PEL VIS WO CONTRAST on DOS: 07/22/21 Technique: Axial images were obtained and reformatted in coronal and sagittal planes. All CT scans at this medical facility are performed using dose modulation techniques as appropriate to a performed e xam including the following: Automated exposure control was utilized; adjustment of the MA and/or KV according to patient size; and use of iterative reconstruction technique. CT Dose: CTDI volume is 6 m Gy. Dose-length product is 274 mGy*cm FINDINGS: Lower Chest: Unremarkable. Hepatobiliary: Numerous subcentimeter calcified granulomas are seen.. Spleen: Numerous subcentimeter calcified granulomas are noted. Pancreas: Severe fatty atrophy. A 1.8 x 1 cm pancreatic body cyst noted. Adrenal Glands: Unremarkable. tract: The kidneys are normal in size bilaterally without hydronephrosis or nephrolithiasis. The u rinary bladder is unremarkable. GI tract: The stomach is grossly normal in appearance. No evidence of small bowel obstruction. There is sigmoid diverticulosis without diverticulitis. The appendix is not visualized. No inflammatory taylor nge is noted in the right lower quadrant. Lymphatics: No mesenteric, retroperitoneal or periportal lymphadenopathy. Vasculature: The abdominal aorta is normal in caliber. Heavy diffuse atherosclerotic calcification of the aortoiliac arteries with high-grade stenosis of the bilateral proximal common iliac arteries mod erate stenosis of the bilateral renal arteries. Pelvic Organs: Unremarkable Bones/soft tissues: 2 screws are noted in the left femoral head and neck. Multilevel degenerative di sc disease and posterior facet arthropathy of the lumbar spine noted. Other: None. IMPRESSION: 1. No CT evidence of acute abnormality in the abdomen or pelvis. 2. Numerous subcentimeter calcified granulomas in liver and spleen reflecting sequela of an old granu lomatous disease. 3. Diffuse atherosclerotic disease with suggestion of high-grade stenosis in the bilateral proximal c ommon iliac arteries. Evaluation is limited in this non angiographic exam.
[2024-08-03 18:23] LABS: Albumin 4.4 g/dL (3.2-4.8); Alkaline Phosphatase 81 U/L (46-116); Anion Gap 10 (5-15); Aspartate Aminotransferase 19 U/L (13-40); BUN/Creatinine Ratio 32.4 (10.0-20.0); Calcium 10.1 mg/dL (8.7-10.4); Carbon Dioxide 24 mmol/L (20-31); Chloride 106 mmol/L (98-107); Lipase 37 U/L (12-53); Potassium 4.8 mmol/L (3.5-5.1); Sodium 140 mmol/L (136-145); Total Protein 7.3 g/dL (5.7-8.2)
[2024-08-03 18:24] LABS: Bilirubin, Total 1.1 mg/dL (0.2-1.0)
[2024-08-03 18:28] LABS: Alanine Aminotransferase < 9 U/L (7-40); Blood Urea Nitrogen 33 mg/dL (9-23); Glucose 119 mg/dL (74-106)
[2024-08-03 19:55] VITALS: PULSE 92; RESP 25; O2SAT 100
[2024-08-03 20:17] LABS: Urine Bacteria None Seen /hpf (None Seen)
[2024-08-03 20:43] LABS: Urine Blood Negative /uL (Negative); Urine Clarity Turbid (Clear); Urine Color Yellow (Yellow); Urine Protein, UAD Negative (Negative); Urine Squamous Epithelial Cell None Seen /hpf (<5); Urine Urobilinogen Normal (Negative)
[2024-08-03 20:55] LABS: Urine WBC < 1 /HPF (0-5)
[2024-08-03 21:00] VITALS: PULSE 99; RESP 27; O2SAT 100
[2024-08-03] MEDS: ONDANSETRON ODT 4 MG TAB PO ONE (21:08)
[2024-08-03] MEDS: MORPHINE SULFATE 4 MG/ML SYR/VIAL IV ONE (21:08)
[2024-08-03] MEDS: cefTRIAXone 1GM/50ML D5W 50 ML IV ONE (22:15)
[2024-08-04] MEDS ORDERED: DEXTROSE (50%) 50ML SYRG IV PRN (01:00)
[2024-08-04] MEDS ORDERED: MORPHINE SULFATE INJ 2 MG/ml SYRG IV PRN (01:00)
[2024-08-04] MEDS ORDERED: NITROGLYCERIN 0.4 MG SL TAB SL PRN (01:00)
[2024-08-04] MEDS ORDERED: DOCUSATE SOD 100 MG CAP PO PRN (01:00)
[2024-08-04] MEDS ORDERED: ONDANSETRON HCL 4 MG/2 ML VIAL IV PRN (01:00)
--- NOTE | 2024-08-04 01:21 | DVHHP2 ---
History of Present Illness Reason for Visit: Acute abdominal pain History of Present Illness The patient is a 84-year-old female with past medical history of gallstone, DM, hyperlipidemia, kidney stones, and hypertension who presented to [facility] ED with complaint of right flank pain for the past 2 days. Patient was seen and evaluated in the ED, laboratory data shows WBC 6.3, platelets 196, sodium 140, potassium 4.8, BUN 33, creatinine 1.02, glucose 119, total bilirubin 1.1, troponin 8, lipase 87, blood pressure 154/51, heart rate 77, temperature 98.4 F, O2 saturation 99% on room air, urinalysis positive for urinary tract infection. Patient was started on IV antibiotic regimen Rocephin, please see medication orders section in the computer. On my assessment, patient denied chest pain, no headache, no dizziness, no diaphoresis, no shortness of breath, no nausea, no vomiting, no fever, no chills. Patient was admitted for further evaluation and medical management. Past Medical History DM, Gallstones, High Lipids, HTN, Kidney Stones Past Surgical History Denies all surgeries Family History Reviewed, noncontributory to the management of this case. Past Social History The patient lives at home, denies smoking, alcohol or illicit drugs abuse. Review of Systems Constitutional: Yes: Weakness; No: Fever, Chills, Sweats, Malaise, Other Eyes: No: Pain, Vision change, Conjunctivae inflammation, Eyelid inflammation, Other, Redness ENT: No: Ear pain, Ear discharge, Nose pain, Nose discharge, Nose congestion, Mouth pain, Mouth swelling, Throat pain, Throat swelling, Other Respiratory: No: Cough, Dry, Shortness of breath, SOB with excertion, Wheezing, Hemoptysis, Pleuritic Pain, Sputum, Wheezing, Other Cardiovascular: No: Chest Pain, Palpitations, Orthopnea, Paroxysmal Noc. Dyspnea, Edema, Lt Headedness, Other Gastrointestinal: Abdominal Pain; No: Nausea, Vomiting, Diarrhea, Constipation, Melena, Hematochezia, Other Genitourinary: Dysuria; No Frequency, No Incontinence, No Hematuria, No Retention; Other (Flank pain) Musculoskeletal: No: other, neck pain, shoulder pain, arm pain, back pain, hand pain, leg pain, foot pain Skin: No: Rash, Lesions, Jaundice, Bruising, Other Neurological: No: Weakness, Numbness, Incoordination, Change in speech, Confusion, Seizures, Other Allergies: Coded Allergies: Morphine (Verified Allergy, Severe, 09/20/22) Codeine (Verified Allergy, Unknown, 09/20/22) Medications Current Medications Medications Dose Ordered Sig/Nirav Route Start Time Stop Time Status Last Admin Dose Admin Ceftriaxone Sodium 50 ml @ 100 mls/hr DAILY@09 IV 08/04/24 09:00 UNV Lisinopril 20 mg DAILY PO 08/04/24 10:00 UNV Atorvastatin Calcium 20 mg HS PO 08/04/24 22:00 UNV Diagnostic Test (Pha) 1 strip ACHS 08/04/24 07:00 UNV Insulin Human Regular ACHS SC 08/04/24 07:00 UNV Dextrose 50 ml UD PRN IV 08/04/24 01:00 UNV Sodium Chloride 10 ml Q8HR IV 08/04/24 06:00 UNV Ondansetron HCl 4 mg Q4HP PRN IV 08/04/24 01:00 UNV Docusate Sodium 100 mg BIDPRN PRN PO 08/04/24 01:00 UNV Acetaminophen 650 mg Q6HP PRN PO 08/04/24 01:00 UNV Exam Vital Signs Vital Signs Date Time Temp Pulse Resp B/P (MAP) Pulse Ox O2 Delivery O2 Flow Rate FiO2 08/03/24 22:00 77 20 154/51 08/03/24 21:00 100 Room Air* 0 21 08/03/24 20:40 98.4 98.4 General Appearance: Alert, Oriented X3, Cooperative, No acute distress HEENT: Atraumatic, PERRLA, EOMI, Mucous membr. moist/pink Respiratory: Clear to auscultation, Normal air movement Cardiovascular: Regular rate, Normal S1, Normal S2, No murmurs Abdominal: Normal bowel sounds, Soft, No tenderness, No hepatospenomegaly, No masses Extremities: No clubbing, No cyanosis, No edema, Normal pulses, No tenderness/swelling Skin: No rashes, No breakdown, No significant lesion Neuro: Normal speech, Normal tone, Sensation intact, Cranial nerves 3-12 NL, Reflexes 2+, Other (Generalized weakness) Psych/Mental Status: Mental status NL, Mood NL Labs/Xrays Labs Test 08/03/24 22:25 08/03/24 20:10 08/03/24 17:58 Range/Units Troponin I High Sensitivity 8 </=34 ng/L Urine Color Yellow Yellow Urine Clarity Turbid H Clear Urine pH 6.0 5.0-9.0 Urine Specific [place] 1.020 1.001-1.035 Urine Protein Negative Negative Urine Ketones Trace Negative Urine Blood Negative Negative /uL Urine Nitrite Negative Negative Urine Bilirubin Negative Negative Urine Urobilinogen Normal Negative mg/dL Urine Leukocyte Esterase 3+ Negative /uL Urine RBC 1 0 - 4 /hpf Urine Microscopic WBC < 1 0-5 /HPF Urine Squamous Epithelial Cells None seen <5 /hpf Urine Bacteria None seen None Seen /hpf Urine Glucose Normal Normal mg/dL White Blood Count 6.3 4.4-10.8 10^3/uL Red Blood Count 5.02 4.0-5.20 10^6/uL Hemoglobin 13.6 12.2-16.2 g/dL Hematocrit 40.9 36.0-46.0 % Mean Corpuscular Volume 81.4 80.0-100.0 fL Mean Corpuscular Hemoglobin 27.1 L 28.0-32.0 pg Mean Corpuscular Hemoglobin Concent 33.4 32.0-36.0 g/dL Red Cell Distribution Width 15.4 H 11.8-14.3 % Platelet Count 196 140-450 10^3/uL Mean Platelet Volume 7.7 6.9-10.8 fL Neutrophils (%) (Auto) 71.7 37.0-80.0 % Lymphocytes (%) (Auto) 23.3 10.0-50.0 % Monocytes (%) (Auto) 3.6 0.0-12.0 % Eosinophils (%) (Auto) 0.5 0.0-7.0 % Basophils (%) (Auto) 0.9 0.0-2.0 % Neutrophils # (Auto) 4.5 1.6-8.6 10 ^3/uL Lymphocytes # (Auto) 1.5 0.4-5.4 10 ^3/uL Monocytes # (Auto) 0.2 0-1.3 10 ^3/uL Eosinophils # (Auto) 0 0-0.8 10 ^3/uL Basophils # (Auto) 0.1 0-0.2 10 ^3/uL Nucleated Red Blood Cells 0.1 % Sodium Level 140 136-145 mmol/L Potassium Level 4.8 3.5-5.1 mmol/L Chloride Level 106 98-107 mmol/L Carbon Dioxide Level 24 20-31 mmol/L Anion Gap 10 5-15 Blood Urea Nitrogen 33 H 9-23 mg/dL Creatinine 1.02 0.550-1.02 mg/dL Glomerular Filtration Rate Calc 54 >90 mL/min BUN/Creatinine Ratio 32.4 H 10.0-20.0 Serum Glucose 119 H 74-106 mg/dL Lactic Acid Level 1.4 0.4-2.0 mmol/L Calcium Level 10.1 8.7-10.4 mg/dL Total Bilirubin 1.1 H 0.2-1.0 mg/dL Aspartate Amino Transferase (AST) 19 13-40 U/L Alanine Aminotransferase (ALT) < 9 7-40 U/L Alkaline Phosphatase 81 46-116 U/L Total Protein 7.3 5.7-8.2 g/dL Albumin 4.4 3.2-4.8 g/dL Lipase 37 12-53 U/L PATIENT: RUDI FLOODCCT: [id number] UNIT: [id number] : 1940 LOC: ER ROOM / BED: / AGE / SEX: 84 / F ADM STATUS: REG ER SERVICE 58 ORDERING PHYSICIAN: BRONWYN GARCIA PAC PROCEDURE(s): ABPL - CT AB PEL WO CON-NO ORAL OR IV REASON: Right-sided flank pain ORDER NUMBER(s): [id number], ACCESSION NUMBER(s): [id number] Procedure: CT CT AB PEL WO CON-NO ORAL OR IV 08/03/2024 05:27 PM Indication: Right-sided flank pain Comparison Study: CT CT AB PEL WO CON-NO ORAL OR IV on DOS: 09/20/22, MBHL on DOS: 01/31/22, CT ABD PELVIS WO CONTRAST on DOS: 07/22/21 Technique: Axial images were obtained and reformatted in coronal and sagittal planes. All CT scans at this medical facility are performed using dose modulation techniques as appropriate to a performed exam including the following: Automated exposure control was utilized; adjustment of the MA and/or KV according to patient size; and use of iterative reconstruction technique. CT Dose: CTDI volume is 6 mGy. Dose-length product is 274 mGy*cm FINDINGS: Lower Chest: Unremarkable. Hepatobiliary: Numerous subcentimeter calcified granulomas are seen.. Spleen: Numerous subcentimeter calcified granulomas are noted. Pancreas: Severe fatty atrophy. A 1.8 x 1 cm pancreatic body cyst noted. Adrenal Glands: Unremarkable. tract: The kidneys are normal in size bilaterally without hydronephrosis or nephrolithiasis. The urinary bladder is unremarkable. GI tract: The stomach is grossly normal in appearance. No evidence of small bowel obstruction. There is sigmoid diverticulosis without diverticulitis. The appendix is not visualized. No inflammatory change is noted in the right lower quadrant. Lymphatics: No mesenteric, retroperitoneal or periportal lymphadenopathy. Vasculature: The abdominal aorta is normal in caliber. Heavy diffuse atherosclerotic calcification of the aortoiliac arteries with high-grade stenosis of the bilateral proximal common iliac arteries moderate stenosis of the bilateral renal arteries. Pelvic Organs: Unremarkable Bones/soft tissues: 2 screws are noted in the left femoral head and neck. Multilevel degenerative disc disease and posterior facet arthropathy of the lumbar spine noted. Other: None. IMPRESSION: 1. No CT evidence of acute abnormality in the abdomen or pelvis. 2. Numerous subcentimeter calcified granulomas in liver and spleen reflecting sequela of an old granulomatous disease. 3. Diffuse atherosclerotic disease with suggestion of high-grade stenosis in the bilateral proximal common iliac arteries. Evaluation is limited in this non angiographic exam. Assessment/Plan Assessment/Plan Acute abdominal pain UTI (urinary tract infection) Generalized weakness Plan 1. Admit to med surge unit 2. Breathing treatment 3. Pain control management 4. IV antibiotic management 5. Management of fluids and electrolytes 6. Consultation for hospitalist 7. Diagnostic test abdomen/pelvis CT 8. DVT prophylaxis-on SCDs 9. Repeat labs CBC, CMP in a.m. 10. Home medication reviewed and reconciled 11. Continue with current medical management 12. Treatment plan discussed with patient and RN. Patient verbalized understanding. Plan discussed with: Patient, Other (RN) My Orders Orders - ISRA ANDREWS DNP Procedure Category Date Status Time Complete Blood Count LAB 08/04/24 Logged 04:00 Comprehensive LAB 08/04/24 Logged Metabolic Panel 04:00 Ceftriaxone 1gm/50ml PHA 08/04/24 Logged D5w (Rocephin) 09:00 Lisinopril Tablet PHA 08/04/24 Logged (Zestril Tablet) 10:00 Atorvastatin (Lipitor) PHA 08/04/24 Logged 22:00 Consistent DIET 08/04/24 Transmitted Carb(Ccho)Diabetes Breakfast Glucose Blood PHA 08/04/24 Logged (Accu-Chek Comfort 07:00 Insulin R (Human) PHA 08/04/24 Logged (Insulin R) 07:00 Dextrose 50% Syringe PHA 08/04/24 Logged 01:00 Allergies BRENDA 08/04/24 In Process 00:48 Code Status CODE 08/04/24 Transmitted 00:48 Sodium Chloride Lock PHA 08/04/24 Logged (Saline Lock Ns) 06:00 Oxygen Per Hour RT 08/04/24 Transmitted 00:48 Ondansetron Hcl PHA 08/04/24 Logged (Zofran) 01:00 Docusate Sodium PHA 08/04/24 Logged Capsule (Colace 01:00 Fall Risk Precautions BRENDA 08/04/[address] 00:48 Complete Blood Count LAB 08/05/24 Verified 04:00 Comprehensive LAB 08/05/24 Verified Metabolic Panel 04:00 Condition: Serious BRENDA 08/04/24 In Process 00:48 Acetaminophen Tablet PHA 08/04/24 Logged (Tylenol Tablet) 01:00 Maintain Bed Rest BRENDA 08/04/24 In Process 00:48 Sequential BRENDA 08/04/24 In Process Compression Device Urine Bacterial DANA 08/04/24 Transmitted Culture 01:00 Admit ADMIT 08/04/24 Transmitted 01:00 Nitroglycerin PHA 08/04/24 Transmitted Sublingual (Ntrostat 01:00 Morphine Sulfate PHA 08/04/24 Transmitted Injection 01:00 Notify Of Changes BRENDA 08/04/24 Transmitted From Base 01:00 Solution Mixer For [facility] 08/04/24 Transmitted 24 Hours 01:00 Emergency Dysrhythmia BRENDA 08/04/24 Transmitted Protocol 01:00 Oxygen By Nasal RT 08/04/24 Transmitted Cannula 01:00 Problem List: (1) Acute abdominal pain (2) UTI (urinary tract infection) (3) Generalized weakness Date of Service: August 04, 2024 Billing Provider: ISRA ANDREWS DNP Common Visit Codes: [id number] INP/OBS CARE (HIGH) ISRA ANDREWS DNP August 04, 2024 01:21
[2024-08-04 04:22] LABS: Basophils # (auto) 0 10 ^3/uL (0-0.2); Basophils % (auto) 0.6 % (0.0-2.0); Eosinophils # (auto) 0 10 ^3/uL (0-0.8); Hematocrit 36.5 % (36.0-46.0); Hemoglobin 12.3 g/dL (12.2-16.2); Lymphocytes # (auto) 1.1 10 ^3/uL (0.4-5.4); Lymphocytes % (auto) 15.2 % (10.0-50.0); Mean Corpuscular Hemoglobin 27.6 pg (28.0-32.0); Mean Corpuscular Hgb Conc. 33.7 g/dL (32.0-36.0); Mean Corpuscular Volume 81.9 fL (80.0-100.0); Monocytes # (auto) 0.2 10 ^3/uL (0-1.3); Monocytes % (auto) 2.4 % (0.0-12.0); Neutrophils # (auto) 5.9 10 ^3/uL (1.6-8.6); Neutrophils % (auto) 81.8 % (37.0-80.0); Nucleated Red Blood Cells % 0.1 %; Platelet Count (auto) 179 10^3/uL (140-450); Red Blood Cells 4.46 10^6/uL (4.0-5.20); Red Cell Distribution Width 15.1 % (11.8-14.3); White Blood Cell 7.2 10^3/uL (4.4-10.8)
[2024-08-04 04:38] LABS: Albumin 3.9 g/dL (3.2-4.8); Alkaline Phosphatase 75 U/L (46-116); Anion Gap 6 (5-15); Aspartate Aminotransferase 18 U/L (13-40); BUN/Creatinine Ratio 32.6 (10.0-20.0); Bilirubin, Total 0.6 mg/dL (0.2-1.0); Calcium 9.5 mg/dL (8.7-10.4); Carbon Dioxide 25 mmol/L (20-31); Potassium 4.4 mmol/L (3.5-5.1); Sodium 141 mmol/L (136-145); Total Protein 6.6 g/dL (5.7-8.2)
[2024-08-04 04:50] LABS: Alanine Aminotransferase < 9 U/L (7-40); Blood Urea Nitrogen 30 mg/dL (9-23); Chloride 110 mmol/L (98-107); Glucose 147 mg/dL (74-106)
[2024-08-04 05:27] VITALS: BP 148/56; PULSE 54; RESP 16; TEMP 97.6; O2SAT 100
[2024-08-04] MEDS: SODIUM CHLOR 0.9% PF (SALINE LOCK) 10ML VIAL/SYR IV SCH (05:53)
[2024-08-04] MEDS: ACCU-CHEK COMFORT CURVE STRIP VI SCH (05:53)
[2024-08-04] MEDS: InsuLIN REG 1unit/0.01ml Soln (100units/ml) SC SCH (05:53)
--- NOTE | 2024-08-04 06:19 | ECG ---
[facility] Test Date: 2024-08-03 Test Time: 22:21:49 Pat Name: VADIM FLOOD Department: ED Room: 0246 A Gender: F P[employer]ed [employer]er: TAVON : 1940 Requested By: BRONWYN GARCIA Order Number: [id number] Reading MD: Sang Borja Measurements Intervals [place] Rate: 61 P: 87 IL: 210 QRS: 89 QRSD: 70 T: 77 QT: 433 QTc: 437 Interpretive Statements Sinus rhythm Borderline right axis deviation Probable anteroseptal infarct, old Electronically Signed On 08-04-2024 21:04:28 PDT by Sang Borja Please click the below link to view image of tracing.
[2024-08-04 08:00] VITALS: RESP 16
[2024-08-04 09:00] VITALS: BP 151/62; PULSE 65; RESP 18; TEMP 98; O2SAT 97
[2024-08-04] MEDS: LISINOPRIL 20 MG TAB PO SCH (10:30)
[2024-08-04] MEDS: cefTRIAXone 1GM/50ML D5W 50 ML IV SCH (10:31)
--- NOTE | 2024-08-04 11:40 | DVH ---
INDICATION: abd pain TECHNIQUE: Frontal view of the chest. COMPARISON: XY CHEST PORTABLE on DOS: 09/20/22, XY CHEST PORTABLE on DOS: 08/27/22, CXRP on DOS: 01/30/22 , CHEST PORTABLE on DOS: 01/30/22, EKG on DOS: 01/30/22 FINDINGS: Finding:. The heart and mediastinal contours are grossly unremarkable. There is uncoiling atheroscler otic change thoracic aorta. There is no evidence of pleural disease. The lungs are clear. There is mi ld prominence of the interstitium suggesting interstitial lung disease. There is hyperaeration of the lungs suggesting chronic obstructive pulmonary disease The bony structures of the chest are intac t without fracture. Bony thorax demonstrated osteopenia. Cephalad subluxation of the right humeral he ad in relation to the glenoid fossa suggesting rotator cuff tear. IMPRESSION: 1. No evidence of acute disease.
[2024-08-04 13:00] VITALS: BP 139/60; PULSE 66; RESP 18; TEMP 97.9; O2SAT 96
--- NOTE | 2024-08-04 14:24 | DVHPN2 ---
Subjective Somewhat agitated and wanted to keep her tramadol with her. Reviewed: Care Plan, H&P, Labs, Medications, Previous Orders, Radiology Changes from previous H/P or p: No Changes Objective Vitals Vital Signs Date Time Temp Pulse Resp B/P (MAP) Pulse Ox O2 Delivery O2 Flow Rate FiO2 08/04/24 10:30 151/62 08/04/24 05:32 Room Air* 0 21 08/04/24 05:27 97.6 54 16 100 97.6 Intake/Output Intake and Output 08/04/24 07:00 Intake Total 1100 ml Balance 1100 ml Intake IV Total 1100 ml General Appearance: Alert, Oriented X3, Cooperative, No acute distress HEENT: Atraumatic Lungs: Clear to auscultation Cardiovascular: Regular rate Abdomen: Normal bowel sounds, Soft, No tenderness Medications Current Medications Medications Dose Ordered Sig/Nirav Route Start Time Stop Time Status Last Admin Dose Admin Ceftriaxone Sodium 50 ml @ 100 mls/hr DAILY@09 IV 08/04/24 09:00 08/04/24 10:31 100 MLS/HR Lisinopril 20 mg DAILY PO 08/04/24 10:00 08/04/24 10:30 20 MG Atorvastatin Calcium 20 mg HS PO 08/04/24 22:00 Diagnostic Test (Pha) 1 strip ACHS 08/04/24 07:00 08/04/24 11:30 1 STRIP Insulin Human Regular ACHS SC 08/04/24 07:00 Dextrose 50 ml UD PRN IV 08/04/24 01:00 Sodium Chloride 10 ml Q8HR IV 08/04/24 06:00 08/04/24 05:53 10 ML Ondansetron HCl 4 mg Q4HP PRN IV 08/04/24 01:00 Docusate Sodium 100 mg BIDPRN PRN PO 08/04/24 01:00 Acetaminophen 650 mg Q6HP PRN PO 08/04/24 01:00 Nitroglycerin 0.4 mg Q5MINP PRN SL 08/04/24 01:00 Morphine Sulfate 2 mg Q30M PRN IV 08/04/24 01:00 Laboratory Results Laboratory Tests 08/04/24 04:09 Chemistry Test 08/03/24 17:58 08/04/24 04:09 Albumin 4.4 g/dL (3.2-4.8) 3.9 g/dL (3.2-4.8) Calcium Level 10.1 mg/dL (8.7-10.4) 9.5 mg/dL (8.7-10.4) Total Protein 7.3 g/dL (5.7-8.2) 6.6 g/dL (5.7-8.2) Lipid panel Test 08/03/24 17:58 Lipase 37 U/L (12-53) LFT Test 08/03/24 17:58 08/04/24 04:09 Alanine Aminotransferase (ALT) < 9 U/L (7-40) < 9 U/L (7-40) Alkaline Phosphatase 81 U/L (46-116) 75 U/L (46-116) Aspartate Amino Transferase (AST) 19 U/L (13-40) 18 U/L (13-40) Total Bilirubin 1.1 mg/dL (0.2-1.0) H 0.6 mg/dL (0.2-1.0) HgA1c, TSH Test 08/04/24 04:09 Hemoglobin A1c 5.4 % A1C (<5.7) Urinalysis Test 08/03/24 20:10 Urine Color Yellow (Yellow) Urine Clarity Turbid (Clear) H Urine pH 6.0 (5.0-9.0) Urine Specific [place] 1.020 (1.001-1.035) Urine Protein Negative (Negative) Urine Ketones Trace (Negative) Urine Blood Negative /uL (Negative) Urine Nitrite Negative (Negative) Urine Bilirubin Negative (Negative) Urine Urobilinogen Normal mg/dL (Negative) Urine Leukocyte Esterase 3+ /uL (Negative) Urine RBC 1 /hpf (0 - 4) Urine Microscopic WBC < 1 /HPF (0-5) Urine Squamous Epithelial Cells None seen /hpf (<5) Urine Bacteria None seen /hpf (None Seen) Urine Glucose Normal mg/dL (Normal) Microbiology Microbiology Date/Time Source Procedure Growth Status 08/03/24 17:40 Blood Blood Culture - Preliminary Resulted Assessment/Plan Assessment/Plan Abdominal pain UTI Blood culture positive for gram-positive cocci in chain Diabetes Cholelithiasis Dyslipidemia Nephrolithiasis Hypertension Chronic low back pain 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 IV fluids. Iliac vascular ultrasound. Chest x-ray. Urine culture. Further plan per orders Plan discussed with: Patient My Orders Orders - BRIT GRIFFITHS MD Procedure Category Date Status Time Blood Culture DANA 08/04/24 In Process 10:21 Chest Portable XY 08/04/24 Resulted 10:22 Date of Service: August 04, 2024 Billing Provider: BRIT GRIFFITHS MD Common Visit Codes: [id number] INP/OBS CARE(HIGH) BRIT GRIFFITHS MD August 04, 2024 14:24
[2024-08-04 17:00] VITALS: BP 137/53; PULSE 63; RESP 18; TEMP 98.1; O2SAT 98
[2024-08-04 20:00] VITALS: RESP 16
[2024-08-04] MEDS: ATORVASTATIN 20 MG TAB PO SCH (21:43)
[2024-08-05 08:00] VITALS: RESP 16
[2024-08-05 09:00] VITALS: BP 149/56; PULSE 78; RESP 17; O2SAT 93
[2024-08-05 09:01] LABS: Alanine Aminotransferase 11 U/L (7-40); Albumin 4.4 g/dL (3.2-4.8); Alkaline Phosphatase 79 U/L (46-116); Anion Gap 13 (5-15); Aspartate Aminotransferase 28 U/L (13-40); BUN/Creatinine Ratio 26.5 (10.0-20.0); Blood Urea Nitrogen 22 mg/dL (9-23); Carbon Dioxide 23 mmol/L (20-31); Chloride 106 mmol/L (98-107); Glucose 87 mg/dL (74-106); Potassium 3.9 mmol/L (3.5-5.1); Sodium 142 mmol/L (136-145); Total Protein 7.5 g/dL (5.7-8.2)
[2024-08-05 09:02] LABS: Bilirubin, Total 0.9 mg/dL (0.2-1.0); Calcium 10.7 mg/dL (8.7-10.4)
[2024-08-05 09:09] LABS: Basophils # (auto) 0.1 10 ^3/uL (0-0.2); Basophils % (auto) 0.7 % (0.0-2.0); Eosinophils # (auto) 0 10 ^3/uL (0-0.8); Eosinophils % (auto) 0.3 % (0.0-7.0); Hematocrit 39.7 % (36.0-46.0); Hemoglobin 13.3 g/dL (12.2-16.2); Lymphocytes # (auto) 1.9 10 ^3/uL (0.4-5.4); Lymphocytes % (auto) 21.7 % (10.0-50.0); Mean Corpuscular Hemoglobin 27.2 pg (28.0-32.0); Mean Corpuscular Hgb Conc. 33.4 g/dL (32.0-36.0); Mean Corpuscular Volume 81.3 fL (80.0-100.0); Monocytes # (auto) 0.4 10 ^3/uL (0-1.3); Monocytes % (auto) 4.1 % (0.0-12.0); Neutrophils # (auto) 6.5 10 ^3/uL (1.6-8.6); Neutrophils % (auto) 73.2 % (37.0-80.0); Nucleated Red Blood Cells % 0.1 %; Platelet Count (auto) 205 10^3/uL (140-450); Red Blood Cells 4.88 10^6/uL (4.0-5.20); Red Cell Distribution Width 15.4 % (11.8-14.3); White Blood Cell 8.9 10^3/uL (4.4-10.8)
--- NOTE | 2024-08-05 10:45 | DVH ---
US AORTA HISTORY: iliac stenosis COMPARISON: None TECHNIQUE: Transverse and longitudinal sonographic images were obtained of the abdominal aorta and co mmon iliac arteries with additional color and spectral doppler images of the abdominal aorta. FINDINGS: Measurements of the abdominal aorta and iliac arteries in maximal dimensions: Upper Abdominal Aorta: 1.1 cm Mid Abdominal Aorta: 1.8 cm Distal Abdominal Aorta: 1.8 cm Right common iliac Artery: 0.7 cm peak systolic velocity 408 Left common iliac Artery: 0.7 cm peak systolic varsity 353 Other: None IMPRESSION: No abdominal aortic aneurysm identified. 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
[2024-08-05 13:00] VITALS: BP 152/57; PULSE 66; RESP 18; O2SAT 97
[2024-08-05 17:00] VITALS: BP 174/79; PULSE 75; RESP 18; O2SAT 100
[2024-08-05] MEDS: ACETAMINOPHEN 325 MG TAB PO PRN (17:12)
[2024-08-05] MEDS ORDERED: HYDROcodone-ACET 5/325MG TAB PO ONE (17:30)
[2024-08-05] MEDS ORDERED: HYDROcodone-ACET 5/325MG TAB PO PRN (17:30)
[2024-08-05] MEDS: traMADol HCL 50 MG TAB PO PRN (18:00)
[2024-08-05 20:00] VITALS: RESP 16
[2024-08-05 21:00] VITALS: BP 159/62; PULSE 67; RESP 16; TEMP 98.1; O2SAT 97
[2024-08-05] MEDS: traMADol HCL 50 MG TAB PO ONE (21:48)
[2024-08-06 01:00] VITALS: BP 152/70; PULSE 69; RESP 16; TEMP 98.2; O2SAT 97
[2024-08-06 08:00] VITALS: PULSE 69; RESP 17; O2SAT 97
--- NOTE | 2024-08-06 13:31 | DVHPN2 ---
Reviewed: Care Plan, H&P, Labs, Medications, Previous Orders, Radiology Changes from previous H/P or p: No Changes Objective Vitals Vital Signs Date Time Temp Pulse Resp B/P (MAP) Pulse Ox O2 Delivery O2 Flow Rate FiO2 08/06/24 08:36 152/70 08/06/24 08:00 69 17 97 Room Air* 0 21 08/06/24 01:00 98.2 98.2 Intake/Output Intake and Output 08/06/24 07:00 Intake Total 500 ml Balance 500 ml Intake Oral 500 ml # Voids 3 # Bowel Movements 1 General Appearance: Alert, Oriented X3, Cooperative, No acute distress HEENT: Atraumatic Lungs: Clear to auscultation Cardiovascular: Regular rate Abdomen: Normal bowel sounds, Soft, No tenderness Medications Current Medications Medications Dose Ordered Sig/Nirav Route Start Time Stop Time Status Last Admin Dose Admin Ceftriaxone Sodium 50 ml @ 100 mls/hr DAILY@09 IV 08/04/24 09:00 08/06/24 08:26 100 MLS/HR Lisinopril 20 mg DAILY PO 08/04/24 10:00 08/06/24 08:36 20 MG Atorvastatin Calcium 20 mg HS PO 08/04/24 22:00 08/05/24 21:48 20 MG Diagnostic Test (Pha) 1 strip ACHS 08/04/24 07:00 08/06/24 11:57 1 STRIP Insulin Human Regular ACHS SC 08/04/24 07:00 Dextrose 50 ml UD PRN IV 08/04/24 01:00 Sodium Chloride 10 ml Q8HR IV 08/04/24 06:00 08/06/24 13:18 10 ML Ondansetron HCl 4 mg Q4HP PRN IV 08/04/24 01:00 Docusate Sodium 100 mg BIDPRN PRN PO 08/04/24 01:00 Acetaminophen 650 mg Q6HP PRN PO 08/04/24 01:00 08/05/24 17:12 650 MG Nitroglycerin 0.4 mg Q5MINP PRN SL 08/04/24 01:00 Morphine Sulfate 2 mg Q30M PRN IV 08/04/24 01:00 Acetaminophen/ Hydrocodone Bitart 1 tab Q6HPRN PRN PO 08/05/24 17:30 UNV Tramadol HCl 50 mg Q8HP PRN PO 08/05/24 17:45 08/06/24 06:30 50 MG Laboratory Results Laboratory Tests 08/05/24 07:55 Urinalysis Test 08/03/24 20:10 Urine Color Yellow (Yellow) Urine Clarity Turbid (Clear) H Urine pH 6.0 (5.0-9.0) Urine Specific [place] 1.020 (1.001-1.035) Urine Protein Negative (Negative) Urine Ketones Trace (Negative) Urine Blood Negative /uL (Negative) Urine Nitrite Negative (Negative) Urine Bilirubin Negative (Negative) Urine Urobilinogen Normal mg/dL (Negative) Urine Leukocyte Esterase 3+ /uL (Negative) Urine RBC 1 /hpf (0 - 4) Urine Microscopic WBC < 1 /HPF (0-5) Urine Squamous Epithelial Cells None seen /hpf (<5) Urine Bacteria None seen /hpf (None Seen) Urine Glucose Normal mg/dL (Normal) Microbiology Microbiology Date/Time Source Procedure Growth Status 08/04/24 10:30 Blood Blood Culture - Preliminary NO GROWTH AFTER 48 HOURS OF INCUBATION. 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
[2024-08-06 20:00] VITALS: RESP 16
[2024-08-06 21:00] VITALS: BP 144/63; PULSE 63; RESP 17; TEMP 97.9; O2SAT 97
[2024-08-07 05:00] VITALS: BP 145/44; PULSE 73; RESP 18; TEMP 97.6; O2SAT 100
[2024-08-07 08:00] VITALS: PULSE 74; RESP 16; O2SAT 96
[2024-08-07 13:00] VITALS: BP 137/47; PULSE 63; RESP 16; TEMP 97.7; O2SAT 99
[2024-08-07] MEDS ORDERED: CIPR-173 PO (13:35)
--- NOTE | 2024-08-07 13:35 | DVHPN2 ---
Reviewed: Care Plan, H&P, Labs, Medications, Previous Orders, Radiology Changes from previous H/P or p: No Changes Objective Vitals Vital Signs Date Time Temp Pulse Resp B/P (MAP) Pulse Ox O2 Delivery O2 Flow Rate FiO2 08/07/24 08:00 74 16 96 Room Air* 0 21 08/07/24 05:00 97.6 145/44 (77) 97.6 Intake/Output Intake and Output 08/07/24 07:00 Intake Total 880 ml Balance 880 ml Intake Oral 830 ml IV Total 50 ml # Voids 3 General Appearance: Alert, Oriented X3, Cooperative, No acute distress HEENT: Atraumatic Lungs: Clear to auscultation Cardiovascular: Regular rate Abdomen: Normal bowel sounds, Soft, No tenderness Medications Current Medications Medications Dose Ordered Sig/Nirav Route Start Time Stop Time Status Last Admin Dose Admin Ceftriaxone Sodium 50 ml @ 100 mls/hr DAILY@09 IV 08/04/24 09:00 08/07/24 10:11 100 MLS/HR Lisinopril 20 mg DAILY PO 08/04/24 10:00 08/06/24 08:36 20 MG Atorvastatin Calcium 20 mg HS PO 08/04/24 22:00 08/06/24 21:58 20 MG Diagnostic Test (Pha) 1 strip ACHS 08/04/24 07:00 08/07/24 11:57 1 STRIP Insulin Human Regular ACHS SC 08/04/24 07:00 08/06/24 21:58 2 UNITS Dextrose 50 ml UD PRN IV 08/04/24 01:00 Sodium Chloride 10 ml Q8HR IV 08/04/24 06:00 08/06/24 21:58 10 ML Ondansetron HCl 4 mg Q4HP PRN IV 08/04/24 01:00 Docusate Sodium 100 mg BIDPRN PRN PO 08/04/24 01:00 Acetaminophen 650 mg Q6HP PRN PO 08/04/24 01:00 08/05/24 17:12 650 MG Nitroglycerin 0.4 mg Q5MINP PRN SL 08/04/24 01:00 Morphine Sulfate 2 mg Q30M PRN IV 08/04/24 01:00 Acetaminophen/ Hydrocodone Bitart 1 tab Q6HPRN PRN PO 08/05/24 17:30 UNV Tramadol HCl 50 mg Q8HP PRN PO 08/05/24 17:45 08/06/24 06:30 50 MG Laboratory Results Laboratory Tests 08/05/24 07:55 Urinalysis Test 08/03/24 20:10 Urine Color Yellow (Yellow) Urine Clarity Turbid (Clear) H Urine pH 6.0 (5.0-9.0) Urine Specific [place] 1.020 (1.001-1.035) Urine Protein Negative (Negative) Urine Ketones Trace (Negative) Urine Blood Negative /uL (Negative) Urine Nitrite Negative (Negative) Urine Bilirubin Negative (Negative) Urine Urobilinogen Normal mg/dL (Negative) Urine Leukocyte Esterase 3+ /uL (Negative) Urine RBC 1 /hpf (0 - 4) Urine Microscopic WBC < 1 /HPF (0-5) Urine Squamous Epithelial Cells None seen /hpf (<5) Urine Bacteria None seen /hpf (None Seen) Urine Glucose Normal mg/dL (Normal) Microbiology Microbiology Date/Time Source Procedure Growth Status 08/04/24 10:30 Blood Blood Culture - Preliminary NO GROWTH AFTER 72 HOURS OF INCUBATION. 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
--- NOTE | 2024-08-07 13:42 | DVHDS2 ---
Discharge Summary Date of Admission August 04, 2024 at 01:00 Date of Discharge: August 07, 2024 Admitting Diagnosis Abdominal pain Wounds: None Labs/Diagnostic Data: Laboratory Results Test 08/07/24 11:43 08/05/24 07:55 08/04/24 04:09 08/03/24 22:25 POC Glucose 96 mg/dl (70-106) White Blood Count 8.9 10^3/uL (4.4-10.8) Red Blood Count 4.88 10^6/uL (4.0-5.20) Hemoglobin 13.3 g/dL (12.2-16.2) Hematocrit 39.7 % (36.0-46.0) Mean Corpuscular Volume 81.3 fL (80.0-100.0) Mean Corpuscular Hemoglobin 27.2 pg (28.0-32.0) Mean Corpuscular Hemoglobin Concent 33.4 g/dL (32.0-36.0) Red Cell Distribution Width 15.4 % (11.8-14.3) Platelet Count 205 10^3/uL (140-450) Mean Platelet Volume 8.4 fL (6.9-10.8) Neutrophils (%) (Auto) 73.2 % (37.0-80.0) Lymphocytes (%) (Auto) 21.7 % (10.0-50.0) Monocytes (%) (Auto) 4.1 % (0.0-12.0) Eosinophils (%) (Auto) 0.3 % (0.0-7.0) Basophils (%) (Auto) 0.7 % (0.0-2.0) Neutrophils # (Auto) 6.5 10 ^3/uL (1.6-8.6) Lymphocytes # (Auto) 1.9 10 ^3/uL (0.4-5.4) Monocytes # (Auto) 0.4 10 ^3/uL (0-1.3) Eosinophils # (Auto) 0 10 ^3/uL (0-0.8) Basophils # (Auto) 0.1 10 ^3/uL (0-0.2) Nucleated Red Blood Cells 0.1 % Sodium Level 142 mmol/L (136-145) Potassium Level 3.9 mmol/L (3.5-5.1) Chloride Level 106 mmol/L (98-107) Carbon Dioxide Level 23 mmol/L (20-31) Anion Gap 13 (5-15) Blood Urea Nitrogen 22 mg/dL (9-23) Creatinine 0.83 mg/dL (0.550-1.02) Glomerular Filtration Rate Calc 69 mL/min (>90) BUN/Creatinine Ratio 26.5 (10.0-20.0) Serum Glucose 87 mg/dL (74-106) Calcium Level 10.7 mg/dL (8.7-10.4) Total Bilirubin 0.9 mg/dL (0.2-1.0) Aspartate Amino Transferase (AST) 28 U/L (13-40) Alanine Aminotransferase (ALT) 11 U/L (7-40) Alkaline Phosphatase 79 U/L (46-116) Total Protein 7.5 g/dL (5.7-8.2) Albumin 4.4 g/dL (3.2-4.8) Hemoglobin A1c 5.4 % A1C (<5.7) Troponin I High Sensitivity 8 ng/L (</=34) Test 08/03/24 20:10 08/03/24 17:58 Urine Color Yellow (Yellow) Urine Clarity Turbid (Clear) Urine pH 6.0 (5.0-9.0) Urine Specific [place] 1.020 (1.001-1.035) Urine Protein Negative (Negative) Urine Ketones Trace (Negative) Urine Blood Negative /uL (Negative) Urine Nitrite Negative (Negative) Urine Bilirubin Negative (Negative) Urine Urobilinogen Normal mg/dL (Negative) Urine Leukocyte Esterase 3+ /uL (Negative) Urine RBC 1 /hpf (0 - 4) Urine Microscopic WBC < 1 /HPF (0-5) Urine Squamous Epithelial Cells None seen /hpf (<5) Urine Bacteria None seen /hpf (None Seen) Urine Glucose Normal mg/dL (Normal) Lactic Acid Level 1.4 mmol/L (0.4-2.0) Lipase 37 U/L (12-53) Other Laboratory Tests 08/05/24 07:55 Brief Hx & Hospital Course: Patient with diabetes hyperlipidemia hypotension history of gallstones came in for abdominal pain. 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 b.i.d. 20. Transmitted to pharmacy 35 (Time taken for discharge summary 35 minutes) Discharge Statement: "Patient was advised to return to the ER or call 911 if any headaches, dizziness, shortness of breath, chest pain, abdominal pain, bleeding, fevers, or worsening of medical condition. Patient was counseled about treatment plan, medications, possible side effects, patientverbalized understanding. All questions were answered to the best of my ability. 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
[2024-08-07 17:00] VITALS: BP 139/49; PULSE 64; RESP 16; TEMP 98.3; O2SAT 98
== END 2024-08-07 19:08 | disposition home or self-care (01) | DRG 690 ==
LOC: EDUNIT# 16:50 → EDBD 16:50 → ER 16:57 → OVERFLOW 08-04 01:00 → EAST 08-04 05:22 → WEST WING 08-07 03:20
PROVIDERS: ADMIT Family Medicine; ATTEND Family Medicine
DX: N30.00 Acute cystitis without hematuria (principal); K86.2 Cyst of pancreas; E11.9 Type 2 diabetes mellitus without complications; E78.5 Hyperlipidemia, unspecified; G89.29 Other chronic pain; I10 Essential (primary) hypertension; N20.0 Calculus of kidney; Z88.5 Allergy status to narcotic agent; Z79.899 Other long term (current) drug therapy
CPT/HCPCS: 36415; 71045; 74176; 76775; 80053; 81001; 82962; 83036; 83605; 83690; 84484; 85025; 87040; 87077; 87086; 87186; 93005; 96365; 96375; G0378; J1815; Q0162

== ENCOUNTER 2024-10-25 16:38 | Inpatient (IN) | payer MEDICARE, OTHER ==
[~2024-10-25] VITALS: Ht 157.5 cm; Wt 50.2 kg
[~2024-10-25 16:38] MED LIST changes: +CIPR-173 PO
--- NOTE | 2024-10-25 18:12 | ED.PDOC ---
Musculoskeletal HPI Comments 84y F who presents to the ED for chief complaint of right lower extremity pain. Pt reports she had fall 1 week ago and states she hit her head and had associated loss of consciousness. She states she also injured her right lateral leg at the same time, then developed a scab. Pt states she was evaluated at another ED for the fall and had CT and blood work which she was told was unremarkable and she was discharged from the ED. Pt presents with grandchildren today who state pt has been having R leg pain with associated redness and swelling for the past 2 days. Pt in the ED, presents in wheelchair has noted wound to the R leg with gavin bandage applied. Pt denies fever,chills, shortness of breath, headache, nausea, vomiting, dysuria, or associated symptoms. Pt family states pt has surgery upcoming for R knee replacement in the next few months. Grandchildren state the patient is not ambulating well now due to both the chronic right knee pain and the new leg redness, swelling and pain. Pt has noted BP of 132/45 with otherwise stable vitals including temp of 97.3 F, heart rate 89, RR 18, and 97% 02 sat on room air. Chief Complaint: Lower Extremity Time Seen by MD: 18:30 Primary Care Provider: LARY SANTIAGO Reviewed Notes: Medications, Allergies Allergies: Coded Allergies: Morphine (Verified Allergy, Severe, 09/20/22) Codeine (Verified Allergy, Unknown, 09/20/22) Home Meds Active Scripts Ciprofloxacin Hcl (Cipro) 500 Mg Tab, 1 TAB PO BID, #20 TAB Prov:CARSON LU MD 08/07/24 Tramadol Hcl (Tramadol Hcl) 50 Mg Tab, 50 MG PO Q6HPRN PRN, #12 TAB moderate to severe pain Prov:SHADY BIANCHI MD 07/23/21 Reported Medications Simvastatin (Simvastatin) 20 Mg Tab, 1 TAB PO 01/31/22 Lisinopril (Lisinopril) 20 Mg Tab, 1 TAB PO DAILYPRN 01/31/22 Glipizide (Glipizide Er) 5 Mg Tab, 1 TAB PO DAILYPRN 01/31/22 Information Source: Patient, Relative Mode of Arrival: Wheelchair Brought in by: grandchildren Past Medical History PAST MEDICAL HISTORY: DM, Gallstones, High Lipids, HTN, Kidney Stones Surgical History (Other): Pertinent for right knee replacement SENIOR LOSS CONTROL SPECIALIST History: No Pertinent SENIOR LOSS CONTROL SPECIALIST History Family History Family History: Reviewed,noncontributory to illness Social History Smoker: Non-Smoker Alcohol: Denies ETOH Use Drugs: Denies Drug Use Lives In: Home Constitutional: denies: chills, diaphoresis, fatigue, fever, malaise, sweats, weakness, others EENTM: denies: blurred vision, double vision, ear bleeding, ear discharge, ear drainage, ear pain, ear ringing, eye pain, eye redness, hearing loss, mouth pain, mouth swelling, nasal discharge, nose bleeding, nose congestion, nose pain, photophobia, tearing, throat pain, throat swelling, voice changes, others Respiratory: denies: cough, hemoptysis, orthopnea, SOB at rest, shortness of breath, SOB with excertion, stridor, wheezing, others Cardiovascular: denies: chest pain, dizzy spells, diaphoresis, Dyspnea on exertion, edema, irregular heart beat, left arm pain, lightheadedness, palpitations, PND, syncope, others Gastrointestinal: denies: abdomen distended, abdominal pain, blood streaked bowels, constipated, diarrhea, dysphagia, difficulty swallowing, hematemesis, melena, nausea, poor appetite, poor fluid intake, rectal bleeding, rectal pain, vomiting, others Genitourinary: denies: abnormal vagina bleeding, burning, dyspareunia, dysuria, flank pain, frequency, hematuria, incontinence, pain, , vagina discharge, urgency, others Neurological: denies: dizziness, fainting, headache, left sided numbness, left sided weakness, numbness, paresthesia, pre-existing deficit, right sided numbness, right sided weakness, seizure, speech problems, tingling, tremors, weakness, others Musculoskeletal: denies: back pain, gout, joint pain, joint swelling, muscle pain, muscle stiffness, neck pain, others Integumetry: reports: wounds (R leg); denies: bruises, change in color, change in hair/nails, dryness, laceration, lesions, lumps, rash, others Allergic/Immunocompromised: denies: Difficulty Healing, Frequent Infections, Hives, Itching, others Hematologic/Lymphatic: denies: anemia, blood clots, easy bleeding, easy bruising, swollen glands, others Endocrine: denies: excessive hunger, excessive sweating, excessive thirst, excessive urination, flushing, intolerance to cold, intolerance to heat, unexplained weight gain, unexplained weight loss, others Psychiatric: denies: anxiety, bipolar disorder, depression, hopeless, panic disorder, schizophrenia, sleepless, suicidal, others All Other Systems: Reviewed and Negative Physical Exam General Appearance: No Apparent Distress HEENT: Other (Pupils and face symmetric. Moist mucous membranes.) Neck: Full Range of Motion, Supple Respiratory: Lungs Clear, No Accessory Muscle Use, No Respiratory Distress, Normal Breath Sounds Cardiovascular: No JVD, Regular Rate/Rhythm Breast Exam: Deferred Gastrointestinal: Non Tender, Soft Genitalia: Deferred Pelvic: Deferred Rectal: Deferred Extremities: Other (Right lateral leg approximate 3.5 x 1.5 cm irregular wound with yellow discharge and surrounding erythema, edema and tenderness. No fluctuance.) Neurologic: Alert (Oriented x3), Normal Affect, Normal Mood, Other (No gross focal deficit) Cerebellar Function: NOT DONE Reflexes: NOT DONE Skin: Dry, Warm, Wounds (Right lateral leg approximate 3.5 x 1.5 cm irregular wound with yellow discharge and surrounding erythema, edema and tenderness. No fluctuance.) Lymphatic: NOT DONE Was a procedure done? Was a procedure done?: No Differential Diagnosis EXT Differential Diagnosis: Cellulitis, Deep Vein Thrombosis, Fracture, Sprain, Septic Other Differential Diagnosis abscess, osteomyelitis, among others X-Ray, Labs, Meds, VS Vital Signs Date Time Temp Pulse Resp B/P (MAP) Pulse Ox O2 Delivery O2 Flow Rate FiO2 10/25/24 16:40 97.3 89 18 132/45 97 97.3 Lab Test 10/25/24 19:14 10/25/24 18:23 Range/Units Troponin I High Sensitivity Pending 9 </=34 ng/L White Blood Count 8.6 4.4-10.8 10^3/uL Red Blood Count 4.61 4.0-5.20 10^6/uL Hemoglobin 12.8 12.2-16.2 g/dL Hematocrit 37.9 36.0-46.0 % Mean Corpuscular Volume 82.2 80.0-100.0 fL Mean Corpuscular Hemoglobin 27.8 L 28.0-32.0 pg Mean Corpuscular Hemoglobin Concent 33.9 32.0-36.0 g/dL Red Cell Distribution Width 15.2 H 11.8-14.3 % Platelet Count 293 140-450 10^3/uL Mean Platelet Volume 7.7 6.9-10.8 fL Neutrophils (%) (Auto) 74.1 37.0-80.0 % Lymphocytes (%) (Auto) 18.8 10.0-50.0 % Monocytes (%) (Auto) 6.3 0.0-12.0 % Eosinophils (%) (Auto) 0.4 0.0-7.0 % Basophils (%) (Auto) 0.4 0.0-2.0 % Neutrophils # (Auto) 6.4 1.6-8.6 10 ^3/uL Lymphocytes # (Auto) 1.6 0.4-5.4 10 ^3/uL Monocytes # (Auto) 0.5 0-1.3 10 ^3/uL Eosinophils # (Auto) 0 0-0.8 10 ^3/uL Basophils # (Auto) 0 0-0.2 10 ^3/uL Nucleated Red Blood Cells 0.0 % Sodium Level 139 136-145 mmol/L Potassium Level 4.4 3.5-5.1 mmol/L Chloride Level 105 98-107 mmol/L Carbon Dioxide Level 25 20-31 mmol/L Anion Gap 9 5-15 Blood Urea Nitrogen 24 H 9-23 mg/dL Creatinine 1.26 H 0.550-1.02 mg/dL Glomerular Filtration Rate Calc 42 >90 mL/min BUN/Creatinine Ratio 19.0 10.0-20.0 Serum Glucose 122 H 74-106 mg/dL Lactic Acid Level 1.2 0.4-2.0 mmol/L Calcium Level 9.7 8.7-10.4 mg/dL B-Type Natriuretic Peptide 72.07 0-100 pg/mL [address] [address] Ph: [phone] DIAGNOSTIC IMAGING Diagnostic Imaging Report : [id number] Signed PATIENT: FRANK FLOODIAACCT: [id number] UNIT: [id number] : 1940 LOC: ER ROOM / BED: / AGE / SEX: 84 / F ADM STATUS: REG ER SERVICE [id number] ORDERING PHYSICIAN: YOSEF MCCLAIN MD PROCEDURE(s): RTBFB - R TIB FIB XRAY REASON: RLE red swollen, wound ORDER NUMBER(s): [id number], ACCESSION NUMBER(s): [id number] CLINICAL INDICATION: RLE red swollen, wound TECHNIQUE: 3 radiographic views of the right tibia and fibula were obtained. Comparison: None FINDINGS/IMPRESSION: The proximal tibial prosthesis in the right knee appears to be slightly inferiorly angulated medially. No fractures or dislocations. ATED BY: MAI URBINA Jr., DO DICTATED DATE/TIME: 10/25/241816 SIGNED BY: MAI URBINA Jr., DO SIGNED DATE/TIME: 10/25/241816 CC: [place] [id number] Ph: [phone] DIAGNOSTIC IMAGING Diagnostic Imaging Report : [id number] Signed PATIENT: RUDI FLOODCCT: [id number] UNIT: [id number] : 1940 LOC: ER ROOM / BED: / AGE / SEX: 84 / F ADM STATUS: REG ER SERVICE 28 ORDERING PHYSICIAN: YOSEF MCCLAIN MD PROCEDURE(s): RLDVT - RT Lower DVT REASON: RLE pain, red, swelling ORDER NUMBER(s): [id number], ACCESSION NUMBER(s): [id number] RIGHT LOWER EXTREMITY VENOUS DOPPLER ULTRASOUND CLINICAL HISTORY: RLE pain, red, swelling COMPARISON: XY R TIB FIB XRAY on DOS: 10/25/24 TECHNIQUE: Grayscale ultrasound with compression, Color Doppler flow and duplex spectral Doppler sonography of the right lower extremity femoral popliteal deep venous system is performed. FINDINGS: Right common femoral vein: Negative. Right greater saphenous vein: Negative. Right deep femoral vein: Negative. Right femoral vein: Negative. Right popliteal vein: Negative. Other: Visualized popliteal trifurcation and posterior tibial vein demonstrate color flow. IMPRESSION: No sonographic evidence of deep venous thrombosis in the right lower extremity at this time. ATED BY: FRANK TOSCANO MD DICTATED DATE/TIME: 10/25/241833 SIGNED BY: FRANK TOSCANO MD SIGNED DATE/TIME: 10/25/241833 CC: X-Ray, Labs, Meds, VS Comment 84-year-old female with a history of diabetes, hypertension and hyperlipidemia brought in by grandchildren for evaluation of right leg redness, swelling and wound Vitals remarkable for BP 132/45 Exam remarkable for Right lateral leg approximate 3.5 x 1.5 cm irregular wound with yellow discharge and surrounding erythema, edema and tenderness. No fluctuance. Rhythm strip independently interpreted by me: Sinus rhythm, rate 89, no ectopy. Right tib-fib x-rays: FINDINGS/IMPRESSION: The proximal tibial prosthesis in the right knee appears to be slightly inferiorly angulated medially. No fractures or dislocations. Right lower extremity ultrasound negative for DVT CBC unremarkable, basic metabolic panel remarkable for BUN 24, creatinine 1.26, BNP unremarkable, troponin negative and lactate normal Patient treated with the following in the ED: 30 cc/kilogram LR bolus, cefepime 2 g IV, vancomycin per pharmacy IV, [place] 5/325 mg p.o. On re-evaluation, patient states pain has improved. Vitals were stable. Plan is to admit the patient for IV antibiotics and PT/OT evaluation. Time of 1ST Reevaluation: 19:12 Reevaluation 1ST: Improved Patient Education/Counseling: Diagnosis, Treatment Family Education/Counseling: Diagnosis, Treatment Sepsis Sepsis Reasesment Focused Exam Orders: Laboratory Tests 10/25/24 18:23: Lactic Acid Level 1.2 Departure 1 Departure Time of Disposition: 19:15 Impression: Primary Impression: Wound infection, posttraumatic Disposition: 09 ADMITTED INPATIENT Admit to: Med Surg Condition: Guarded Critical Care Note Critical Care Time?: No Stability Stability form required: No Heart Score Heart Score: Heart Score Response (Comments) Value History N/A 0 EKG N/A 0 Age N/A 0 Risk Factors N/A 0 Troponin N/A 0 Total 0 I personally scribed for YOSEF MCCLAIN MD ([email or web address]) on 10/25/24 at 18:12. Electronically submitted by Marco Antonio Woodson ([facility]). I personally scribed for YOSEF MCCLAIN MD ([facility]) on 10/25/24 at 18:53. Electronically submitted by Marco Antonio Woodson ([facility]). I personally scribed for YOSEF MCCLAIN MD ([facility]) on 10/25/24 at 18:56. Electronically submitted by Marco Antonio Woodson ([facility]). YOSEF MCCLAIN MD Oct 25, 2024 18:12
--- NOTE | 2024-10-25 18:19 | DVH ---
CLINICAL INDICATION: RLE red swollen, wound TECHNIQUE: 3 radiographic views of the right tibia and fibula were obtained. Comparison: None FINDINGS/IMPRESSION: The proximal tibial prosthesis in the right knee appears to be slightly inferiorly angulated medially . No fractures or dislocations.
--- NOTE | 2024-10-25 18:37 | DVH ---
RIGHT LOWER EXTREMITY VENOUS DOPPLER ULTRASOUND CLINICAL HISTORY: RLE pain, red, swelling COMPARISON: XY R TIB FIB XRAY on DOS: 10/25/24 TECHNIQUE: Grayscale ultrasound with compression, Color Doppler flow and duplex spectral Doppler son ography of the right lower extremity femoral popliteal deep venous system is performed. FINDINGS: Right common femoral vein: Negative. Right greater saphenous vein: Negative. Right deep femoral vein: Negative. Right femoral vein: Negative. Right popliteal vein: Negative. Other: Visualized popliteal trifurcation and posterior tibial vein demonstrate color flow. IMPRESSION: No sonographic evidence of deep venous thrombosis in the right lower extremity at this time.
[2024-10-25 18:51] LABS: Hematocrit 37.9 % (36.0-46.0); Hemoglobin 12.8 g/dL (12.2-16.2); Mean Corpuscular Hemoglobin 27.8 pg (28.0-32.0); Mean Corpuscular Volume 82.2 fL (80.0-100.0); Nucleated Red Blood Cells % 0.0 %
[2024-10-25 18:56] LABS: Chloride 105 mmol/L (98-107); Potassium 4.4 mmol/L (3.5-5.1); Sodium 139 mmol/L (136-145)
[2024-10-25 18:57] LABS: Anion Gap 9 (5-15); Calcium 9.7 mg/dL (8.7-10.4); Carbon Dioxide 25 mmol/L (20-31)
[2024-10-25 19:02] LABS: BUN/Creatinine Ratio 19.0 (10.0-20.0)
[2024-10-25 19:11] LABS: Blood Urea Nitrogen 24 mg/dL (9-23); Glucose 122 mg/dL (74-106)
[2024-10-25] MEDS: HYDROcodone-ACET 5/325MG TAB PO ONE (20:51)
[2024-10-25] MEDS: CEFEPIME 1GM/ 50ML 50 ML IV ONE (20:51)
[2024-10-25] MEDS: LACTATED RINGER'S 1,500 ML IV ONE (20:52)
[2024-10-25 21:04] VITALS: PULSE 84; RESP 20; O2SAT 96
[2024-10-25] MEDS: VANCOMYCIN 1GM/200ML PM 200 ML IV ONE (21:04)
--- NOTE | 2024-10-25 21:29 | DVHHPRES ---
History of Present Illness Resident Creating Document: THANG SUNG RESIDENT Reason for Visit: Right leg pain and wound History of Present Illness 84-year-old female with past medical history of gallstone, DM, hyperlipidemia, kidney stones, and hypertension. Pt presented to ED with having R leg pain with associated redness and swelling for the past 2 days. Pt reports she had fall 1 week ago and states she hit her head and had associated loss of consciousness. She states she also injured her right lateral leg at the same time, then developed a scab. Pt family states pt has surgery upcoming for R knee replacement in the next few months. patient denied chest pain, no headache, no dizziness, no diaphoresis, no shortness of breath, no nausea, no vomiting, no fever, no chills. Past Medical History medical history of gallstone, DM, hyperlipidemia, kidney stones, and hypertension. Review of Systems Review of Systems CONSTITUTIONAL: Denies weight loss, fever and chills. HEENT: Denies changes in vision and hearing. RESPIRATORY: Denies SOB and cough. CV: Denies palpitations and chest pain. GI: Denies abdominal pain, nausea, vomiting and diarrhea. : Denies dysuria and urinary frequency. MSK: reports: wounds (R leg) SKIN: Denies rash and pruritus. NEUROLOGICAL: Denies headache Allergies: Coded Allergies: Morphine (Verified Allergy, Severe, 09/20/22) Codeine (Verified Allergy, Unknown, 09/20/22) Medications Current Medications Medications Dose Ordered Sig/Nirav Route Start Time Stop Time Status Last Admin Dose Admin Cefepime HCl 0.5 gm/Sodium Chloride 50 ml @ 12.5 mls/hr DAILY@1800 IV 10/26/24 18:00 Acetaminophen/ Hydrocodone Bitart 1 tab Q4HP PRN PO 10/25/24 21:30 UNV Ondansetron HCl 4 mg Q4HP PRN IV 10/25/24 21:30 UNV Exam Vital Signs Vital Signs Date Time Temp Pulse Resp B/P (MAP) Pulse Ox O2 Delivery O2 Flow Rate FiO2 10/25/24 21:06 97.6 69 16 150/57 (88) 100 97.6 10/25/24 21:04 Room Air* 0 21 Exam GENERAL: Not in acute distress. HEENT: EOMI, Moist mucous membranes. No scleral icterus. No cervical lymph adenopathy. LUNGS: Clear to auscultation bilaterally. No accessory muscle use. CARDIOVASCULAR: Regular rate and rhythm. No murmur. No JVD. ABDOMEN: Soft, nontender and nondistended. No palpable masses. EXTREMITIES: Right lateral leg wound with yellow discharge and surrounding erythema, edema and tenderness.. SKIN: No rashes or lesions. Warm. NEUROLOGIC: Alert and oriented X3 Labs/Xrays Labs Test 10/25/24 19:14 10/25/24 18:23 Range/Units Troponin I High Sensitivity 9 </=34 ng/L White Blood Count 8.6 4.4-10.8 10^3/uL Red Blood Count 4.61 4.0-5.20 10^6/uL Hemoglobin 12.8 12.2-16.2 g/dL Hematocrit 37.9 36.0-46.0 % Mean Corpuscular Volume 82.2 80.0-100.0 fL Mean Corpuscular Hemoglobin 27.8 L 28.0-32.0 pg Mean Corpuscular Hemoglobin Concent 33.9 32.0-36.0 g/dL Red Cell Distribution Width 15.2 H 11.8-14.3 % Platelet Count 293 140-450 10^3/uL Mean Platelet Volume 7.7 6.9-10.8 fL Neutrophils (%) (Auto) 74.1 37.0-80.0 % Lymphocytes (%) (Auto) 18.8 10.0-50.0 % Monocytes (%) (Auto) 6.3 0.0-12.0 % Eosinophils (%) (Auto) 0.4 0.0-7.0 % Basophils (%) (Auto) 0.4 0.0-2.0 % Neutrophils # (Auto) 6.4 1.6-8.6 10 ^3/uL Lymphocytes # (Auto) 1.6 0.4-5.4 10 ^3/uL Monocytes # (Auto) 0.5 0-1.3 10 ^3/uL Eosinophils # (Auto) 0 0-0.8 10 ^3/uL Basophils # (Auto) 0 0-0.2 10 ^3/uL Nucleated Red Blood Cells 0.0 % Sodium Level 139 136-145 mmol/L Potassium Level 4.4 3.5-5.1 mmol/L Chloride Level 105 98-107 mmol/L Carbon Dioxide Level 25 20-31 mmol/L Anion Gap 9 5-15 Blood Urea Nitrogen 24 H 9-23 mg/dL Creatinine 1.26 H 0.550-1.02 mg/dL Glomerular Filtration Rate Calc 42 >90 mL/min BUN/Creatinine Ratio 19.0 10.0-20.0 Serum Glucose 122 H 74-106 mg/dL Lactic Acid Level 1.2 0.4-2.0 mmol/L Calcium Level 9.7 8.7-10.4 mg/dL B-Type Natriuretic Peptide 72.07 0-100 pg/mL SEPSIS Sepsis Screen Date sepsis recognized/suspect: Oct 25, 2024 Time Sepsis recognized/suspect: 1640 Recent Procedure: No On Antibiotic Therapy: No Respiratory Rate >20: No Heart Rate >90: No Temp<36 C (96.8 F) or >38.3 C: No SBP <90 or MAP <65 mmHG: No New Acute Mental Status Change: No Is the patient on CPAP, BIPAP,: No Physician Orders Blood Culture (10/25/24 17:29) Wound Culture W/ Gs (10/25/24 17:29) Rt Lower Dvt (10/25/24 17:29) R Tib Fib Xray (10/25/24 17:29) Electrocardigram (10/25/24 17:29) Urinalysis (10/25/24 17:37) Drug Screen (10/25/24 17:37) Cefepime (Maxipime) (10/26/24 18:00) Admit (10/25/24 21:22) Code Status (10/25/24 21:22) Hydrocodone-Acet 5/325mg Tab ([place] 5/32 (10/25/24 21:30) Ondansetron Hcl (Zofran) (10/25/24 21:30) Complete Blood Count (10/26/24 04:00) Comprehensive Metabolic Panel (10/26/24 04:00) Condition: Fair (10/25/24 21:22) Acetaminophen Tablet (Tylenol Tablet) (10/25/24 21:30) Lovenox 40mg (10/26/24 10:00) Nitroglycerin Sublingual (Ntrostat Subli (10/25/24 21:30) Morphine Sulfate Injection (10/25/24 21:30) Notify Md Of Changes From Base (10/25/24 21:22) Oxygen By Nasal Cannula (10/25/24 21:22) Emergency Dysrhythmia Protocol (10/25/24 21:22) Diet (10/25/24 21:22) Vital Signs Date Time Temp Pulse Resp B/P (MAP) Pulse Ox O2 Delivery O2 Flow Rate FiO2 10/25/24 21:06 97.6 69 16 150/57 (88) 100 97.6 10/25/24 21:04 84 20 96 Room Air* 0 21 10/25/24 16:40 97.3 89 18 132/45 97 97.3 Laboratory Tests Test 10/25/24 18:23 Lactic Acid Level 1.2 mmol/L (0.4-2.0) White Blood Count 8.6 10^3/uL (4.4-10.8) Medications Medications Dose Ordered Sig/Nirav Route Start Time Stop Time Status Last Admin Dose Admin Acetaminophen/ Hydrocodone Bitart 1 tab ONCE ONCE PO 10/25/24 19:15 10/25/24 20:36 DC 10/25/24 20:51 1 TAB Cefepime HCl 50 ml @ 50 mls/hr ONCE ONCE IV 10/25/24 18:00 10/25/24 18:59 DC 10/25/24 20:51 50 MLS/HR Lactated Ringer's 1,500 ml @ 1,500 mls/hr ONCE ONCE IV 10/25/24 17:30 10/25/24 18:29 DC 10/25/24 20:52 1,500 MLS/HR Vancomycin HCl 200 ml @ 200 mls/hr ONCE ONCE IV 10/25/24 17:30 10/25/24 18:29 DC 10/25/24 21:04 200 MLS/HR Assessment/Plan Assessment/Plan # Right leg wound # Right leg cellulitis # Right leg pain # traumatic leg injury # Hypertension # Chronic low back pain # Dyslipidemia # Diabetes mellitus type 2 -Right lower extremity ultrasound negative for DVT - No fractures or dislocations. - continue IV antibiotic cefepime, - pain management - wound care - consult Podiatry if necessary - DVT prophylaxis with Lovenox 30 mg sc daily Goal of care discussed with patient for 36 minutes: Full code Plan discussed with Dr. Crain Plan discussed with: Patient My Orders Orders - THANG SUNG RESIDENT Procedure Category Date Status Time Admit ADMIT 10/25/24 Transmitted 21:22 Code Status CODE 10/25/24 Transmitted 21:22 Hydrocodone-Acet PHA 10/25/24 Transmitted 5/325mg Tab ([place] 21:30 Ondansetron Hcl PHA 10/25/24 Transmitted (Zofran) 21:30 Complete Blood Count LAB 10/26/24 Verified 04:00 Comprehensive LAB 10/26/24 Verified Metabolic Panel 04:00 Condition: Fair [facility] 10/25/24 In Process 21:22 Acetaminophen Tablet PHA 10/25/24 Transmitted (Tylenol Tablet) 21:30 Lovenox 40mg PHA 10/26/24 Transmitted 10:00 Nitroglycerin PHA 10/25/24 Transmitted Sublingual (Ntrostat 21:30 Morphine Sulfate PHA 10/25/24 Transmitted Injection 21:30 Notify Of Changes [facility] 10/25/24 Transmitted From Base 21:22 Oxygen By Nasal RT 10/25/24 Transmitted Cannula 21:22 Emergency Dysrhythmia [facility] 10/25/24 Transmitted Protocol 21:22 Diet [facility] 10/25/24 Transmitted 21:22 Date of Service: Oct 25, 2024 Billing Provider: GARRICK CRAIN MD Common Visit Codes: [id number] INP/OBS CARE (HIGH) Secondary Visit Codes: [id number] CARE PLAN 30 MINUTES THANG SUNG RESIDENT Oct 25, 2024 21:29
[2024-10-25] MEDS ORDERED: ACETAMINOPHEN 325 MG TAB PO PRN (21:30)
[2024-10-25] MEDS ORDERED: NITROGLYCERIN 0.4 MG SL TAB SL PRN (21:30)
[2024-10-25] MEDS ORDERED: ONDANSETRON HCL 4 MG/2 ML VIAL IV PRN (21:30)
[2024-10-25] MEDS ORDERED: MORPHINE SULFATE INJ 2 MG/ml SYRG IV PRN (21:30)
[2024-10-26] VITALS (9 sets, daily range): BP systolic 112–158; BP diastolic 42–83; PULSE 59–102; RESP 16–18; TEMP 97.1–98.2; O2SAT 97–100
[2024-10-26] MEDS: HYDROcodone-ACET 5/325MG TAB PO PRN (02:21)
[2024-10-26 09:09] LABS: Hematocrit 32.4 % (36.0-46.0); Hemoglobin 11.3 g/dL (12.2-16.2); Mean Corpuscular Hemoglobin 28.3 pg (28.0-32.0); Mean Corpuscular Volume 81.2 fL (80.0-100.0); Nucleated Red Blood Cells % 0.1 %
[2024-10-26 09:20] LABS: Alkaline Phosphatase 79 U/L (46-116); Anion Gap 9 (5-15); BUN/Creatinine Ratio 20.9 (10.0-20.0); Calcium 9.1 mg/dL (8.7-10.4); Carbon Dioxide 24 mmol/L (20-31); Potassium 3.9 mmol/L (3.5-5.1); Sodium 141 mmol/L (136-145); Total Protein 5.9 g/dL (5.7-8.2)
[2024-10-26 09:21] LABS: Alanine Aminotransferase < 9 U/L (7-40); Albumin 3.5 g/dL (3.2-4.8); Bilirubin, Total 0.4 mg/dL (0.2-1.0); Blood Urea Nitrogen 23 mg/dL (9-23); Chloride 108 mmol/L (98-107); Glucose 159 mg/dL (74-106)
[2024-10-26] MEDS: ENOXAPARIN SOD 30 MG/0.3 ML SYRINGE SC SCH (09:49)
--- NOTE | 2024-10-26 12:11 | DVHPN2 ---
Reviewed: Care Plan, H&P, Labs, Medications, Previous Orders, Radiology Changes from previous H/P or p: No Changes Objective Vitals Vital Signs Date Time Temp Pulse Resp B/P (MAP) Pulse Ox O2 Delivery O2 Flow Rate FiO2 10/26/24 09:00 97.8 64 16 124/56 (78) 99 97.8 10/26/24 08:00 Room Air* 0 21 Intake/Output Intake and Output 10/26/24 07:00 Intake Total 100 ml Balance 100 ml Intake Oral 100 ml Medications Current Medications Medications Dose Ordered Sig/Nirav Route Start Time Stop Time Status Last Admin Dose Admin Cefepime HCl 0.5 gm/Sodium Chloride 50 ml @ 12.5 mls/hr DAILY@1800 IV 10/26/24 18:00 Acetaminophen/ Hydrocodone Bitart 1 tab Q4HP PRN PO 10/25/24 21:30 10/26/24 02:21 1 TAB Ondansetron HCl 4 mg Q4HP PRN IV 10/25/24 21:30 Acetaminophen 650 mg Q6HP PRN PO 10/25/24 21:30 Enoxaparin Sodium 30 mg DAILY SC 10/26/24 10:00 10/26/24 09:49 30 MG Nitroglycerin 0.4 mg Q5MINP PRN SL 10/25/24 21:30 Morphine Sulfate 2 mg Q30M PRN IV 10/25/24 21:30 Hold Laboratory Results Laboratory Tests 10/26/24 07:16 Chemistry Test 10/25/24 18:23 10/26/24 07:16 Calcium Level 9.7 mg/dL (8.7-10.4) 9.1 mg/dL (8.7-10.4) Albumin 3.5 g/dL (3.2-4.8) Total Protein 5.9 g/dL (5.7-8.2) Cardiac Markers Test 10/25/24 18:23 B-Type Natriuretic Peptide 72.07 pg/mL (0-100) LFT Test 10/26/24 07:16 Alanine Aminotransferase (ALT) < 9 U/L (7-40) Alkaline Phosphatase 79 U/L (46-116) Aspartate Amino Transferase (AST) 17 U/L (13-40) Total Bilirubin 0.4 mg/dL (0.2-1.0) Labs and/or images reviewed: Labs reviewed by me, Image(s) reviewed by me Assessment/Plan Assessment/Plan Cellulitis right lower extremity: Cefepime pain medication, CT right leg negative, DVT right lower extremity ruled out Hypertension Chronic low back Diabetes type 2 Hypercholesterolemia History of gallstones Plan discussed with: Patient My Orders Orders - CARSON LU MD Procedure Category Date Status Time Consistent DIET 10/26/24 Transmitted Carb(Ccho)Diabetes Lunch Date of Service: Oct 26, 2024 Billing Provider: CARSON LU MD Common Visit Codes: [id number] INP/OBS CARE(HIGH) CARSON LU MD Oct 26, 2024 12:11
[2024-10-26 17:04] LABS: Benzodiazephine Screen, Urine Pos (NEGATIVE); Opiate Scree,Urine Neg (NEGATIVE)
[2024-10-26 17:25] LABS: Amphetamine Screen, Urine Neg (NEGATIVE); Barbiturate Scree,Urine Neg (NEGATIVE); Cannabinoid Screen, Urine Neg (NEGATIVE); Cocaine Screen, Urine Neg (NEGATIVE); Phencyclidine Screen, Urine Neg (NEGATIVE)
[2024-10-26] MEDS: CEFEPIME 0.5 GM in SODIUM CHL 0.9% 50 ML IV SCH (18:00)
[2024-10-26 18:03] LABS: Urine Protein, UAD Negative (Negative)
[2024-10-27 09:00] VITALS: BP 141/61; PULSE 58; RESP 18; TEMP 96.7; O2SAT 99
--- NOTE | 2024-10-27 10:19 | DVHPN2 ---
Reviewed: Care Plan, H&P, Labs, Medications, Previous Orders, Radiology Changes from previous H/P or p: No Changes Objective Vitals Vital Signs Date Time Temp Pulse Resp B/P (MAP) Pulse Ox O2 Delivery O2 Flow Rate FiO2 10/27/24 08:15 Room Air* 0 21 10/26/24 21:00 97.1 65 16 158/53 (88) 100 97.1 Intake/Output Intake and Output 10/27/24 07:00 Intake Total 900 ml Output Total 700 ml Balance 200 ml Intake Oral 900 ml Output Urine Total 700 ml # Bowel Movements 2 Medications Current Medications Medications Dose Ordered Sig/Nirav Route Start Time Stop Time Status Last Admin Dose Admin Cefepime HCl 0.5 gm/Sodium Chloride 50 ml @ 12.5 mls/hr DAILY@1800 IV 10/26/24 18:00 Acetaminophen/ Hydrocodone Bitart 1 tab Q4HP PRN PO 10/25/24 21:30 10/27/24 06:01 1 TAB Ondansetron HCl 4 mg Q4HP PRN IV 10/25/24 21:30 Acetaminophen 650 mg Q6HP PRN PO 10/25/24 21:30 Enoxaparin Sodium 30 mg DAILY SC 10/26/24 10:00 10/27/24 09:19 30 MG Nitroglycerin 0.4 mg Q5MINP PRN SL 10/25/24 21:30 Morphine Sulfate 2 mg Q30M PRN IV 10/25/24 21:30 Hold Laboratory Results Laboratory Tests 10/26/24 07:16 Urinalysis Test 10/26/24 15:31 Urine Color Lihgt yellow (Yellow) Urine Clarity Clear (Clear) Urine pH 5.5 (5.0-9.0) Urine Specific [place] 1.014 (1.001-1.035) Urine Protein Negative (Negative) Urine Ketones Negative (Negative) Urine Blood Negative /uL (Negative) Urine Nitrite Negative (Negative) Urine Bilirubin Negative (Negative) Urine Urobilinogen Normal mg/dL (Negative) Urine Leukocyte Esterase Negative /uL (Negative) Urine RBC None seen /hpf (0 - 4) Urine Microscopic WBC 4 /HPF (0-5) Urine Squamous Epithelial Cells Few /hpf (<5) Urine Bacteria None seen /hpf (None Seen) Urine Glucose Normal mg/dL (Normal) Microbiology Microbiology Date/Time Source Procedure Growth Status 10/26/24 13:38 Leg Right Gram Stain Pending Resulted 10/26/24 13:38 Leg Right Wound Culture - Preliminary Resulted 10/25/24 18:23 Blood Blood Culture - Preliminary NO GROWTH AFTER 24 HOURS OF INCUBATION. Resulted Labs and/or images reviewed: Labs reviewed by me, Image(s) reviewed by me Assessment/Plan Assessment/Plan Cellulitis right lower extremity: Cefepime pain medication, CT right leg negative, DVT right lower extremity ruled out blood cultures negative, wound cultures pending Hypertension Chronic low back Diabetes type 2 Hypercholesterolemia History of gallstones Plan discussed with: Patient My Orders Orders - CARSON LU MD Procedure Category Date Status Time Consistent DIET 10/26/24 Transmitted Carb(Ccho)Diabetes Lunch Cleanse Wound With BRENDA 10/26/24 In Process Wound Clean 13:25 * Dietary Consult CONS 10/26/24 Transmitted 16:06 Date of Service: Oct 27, 2024 Billing Provider: CARSON LU MD Common Visit Codes: [id number] INP/OBS CARE(HIGH) CARSON LU MD Oct 27, 2024 10:19
[2024-10-27 13:00] VITALS: BP 149/69; PULSE 63; RESP 16; TEMP 97.9; O2SAT 100
[2024-10-27 17:00] VITALS: BP 151/74; PULSE 78; RESP 20; TEMP 98.1; O2SAT 92
[2024-10-27 20:53] VITALS: BP 148/67; PULSE 73; RESP 19; TEMP 98.6; O2SAT 99
[2024-10-27] MEDS ORDERED: CEFEPIME 1GM/ 50ML 50 ML IV SCH (22:00)
[2024-10-28 01:00] VITALS: BP 142/80; PULSE 69; RESP 16; TEMP 97.9; O2SAT 99
[2024-10-28 04:58] VITALS: BP 150/61; PULSE 65; RESP 19; TEMP 97.8; O2SAT 99
[2024-10-28] MEDS: CEFEPIME 1GM/ 50ML 50 ML IV SCH (05:30)
[2024-10-28 09:00] VITALS: BP 135/61; PULSE 62; RESP 17; TEMP 97; O2SAT 97
[2024-10-28] MEDS ORDERED: CLIN1CAP70 PO (11:45)
[2024-10-28] MEDS ORDERED: LEVO500T91 PO (11:45)
[2024-10-28] MEDS ORDERED: HYDR-4902 PO (11:46)
--- NOTE | 2024-10-28 11:48 | DVHPN2 ---
Reviewed: Care Plan, H&P, Labs, Medications, Previous Orders, Radiology Changes from previous H/P or p: No Changes Objective Vitals Vital Signs Date Time Temp Pulse Resp B/P (MAP) Pulse Ox O2 Delivery O2 Flow Rate FiO2 10/28/24 09:00 97.0 62 17 135/61 (85) 97 97.0 10/28/24 08:05 Room Air* 0 21 Intake/Output Intake and Output 10/28/24 07:00 Intake Total 1560.0 ml Output Total 1 ml Balance 1559.0 ml Intake Oral 1510 ml IV Total 50.0 ml Output Urine Total 1 ml # Voids 1 # Bowel Movements 1 Medications Current Medications Medications Dose Ordered Sig/Nirav Route Start Time Stop Time Status Last Admin Dose Admin Acetaminophen/ Hydrocodone Bitart 1 tab Q4HP PRN PO 10/25/24 21:30 10/27/24 23:17 1 TAB Ondansetron HCl 4 mg Q4HP PRN IV 10/25/24 21:30 Acetaminophen 650 mg Q6HP PRN PO 10/25/24 21:30 Enoxaparin Sodium 30 mg DAILY SC 10/26/24 10:00 10/28/24 08:22 30 MG Nitroglycerin 0.4 mg Q5MINP PRN SL 10/25/24 21:30 Cefepime HCl 50 ml @ 12.5 mls/hr Q12HR@0600,1800 IV 10/28/24 06:00 10/28/24 05:30 12.5 MLS/HR Tramadol HCl 50 mg Q6HP PRN PO 10/28/24 01:45 10/28/24 01:49 50 MG Laboratory Results Laboratory Tests 10/26/24 07:16 Urinalysis Test 10/26/24 15:31 Urine Color Lihgt yellow (Yellow) Urine Clarity Clear (Clear) Urine pH 5.5 (5.0-9.0) Urine Specific [place] 1.014 (1.001-1.035) Urine Protein Negative (Negative) Urine Ketones Negative (Negative) Urine Blood Negative /uL (Negative) Urine Nitrite Negative (Negative) Urine Bilirubin Negative (Negative) Urine Urobilinogen Normal mg/dL (Negative) Urine Leukocyte Esterase Negative /uL (Negative) Urine RBC None seen /hpf (0 - 4) Urine Microscopic WBC 4 /HPF (0-5) Urine Squamous Epithelial Cells Few /hpf (<5) Urine Bacteria None seen /hpf (None Seen) Urine Glucose Normal mg/dL (Normal) Microbiology Microbiology Date/Time Source Procedure Growth Status 10/26/24 13:38 Leg Right Gram Stain Pending Resulted 10/26/24 13:38 Wound Culture - Preliminary Staphylococcus aureus Enterobacter cloacae Resulted 10/25/24 18:23 Blood Blood Culture - Preliminary NO GROWTH AFTER 48 HOURS OF INCUBATION. Resulted Labs and/or images reviewed: Labs reviewed by me, Image(s) reviewed by me Assessment/Plan Assessment/Plan Cellulitis right lower extremity: Cefepime pain medication, CT right leg negative, DVT right lower extremity ruled out blood cultures negative, wound cultures growing MSSA and E cloacae sensitive to clindamycin and Levaquin respectively Hypertension Chronic low back Diabetes type 2 Hypercholesterolemia History of gallstones Plan discussed with: Patient Date of Service: Oct 28, 2024 Billing Provider: CARSON LU MD Common Visit Codes: [id number] INP/OBS CARE(HIGH) CARSON LU MD Oct 28, 2024 11:48
--- NOTE | 2024-10-28 11:51 | DVHDS2 ---
Discharge Summary Date of Admission Oct 25, 2024 at 21:22 Date of Discharge: Oct 28, 2024 Admitting Diagnosis Cellulitis right lower extremity Wounds: Cellulitis right lower extremity Labs/Diagnostic Data: Laboratory Results Test 10/26/24 15:31 10/26/24 07:16 10/25/24 19:14 10/25/24 18:23 Urine Color Lihgt yellow (Yellow) Urine Clarity Clear (Clear) Urine pH 5.5 (5.0-9.0) Urine Specific [place] 1.014 (1.001-1.035) Urine Protein Negative (Negative) Urine Ketones Negative (Negative) Urine Blood Negative /uL (Negative) Urine Nitrite Negative (Negative) Urine Bilirubin Negative (Negative) Urine Urobilinogen Normal mg/dL (Negative) Urine Leukocyte Esterase Negative /uL (Negative) Urine RBC None seen /hpf (0 - 4) Urine Microscopic WBC 4 /HPF (0-5) Urine Squamous Epithelial Cells Few /hpf (<5) Urine Bacteria None seen /hpf (None Seen) Urine Glucose Normal mg/dL (Normal) Urine Opiates Screen Neg (NEGATIVE) Urine Fentanyl Screen Neg (NEGATIVE) Urine Barbiturates Screen Neg (NEGATIVE) Urine Phencyclidine Screen Neg (NEGATIVE) Urine Amphetamines Screen Neg (NEGATIVE) Urine Benzodiazepines Screen Pos (NEGATIVE) Urine Cocaine Screen Neg (NEGATIVE) Urine Cannabinoids Screen Neg (NEGATIVE) White Blood Count 6.7 10^3/uL (4.4-10.8) Red Blood Count 3.99 10^6/uL (4.0-5.20) Hemoglobin 11.3 g/dL (12.2-16.2) Hematocrit 32.4 % (36.0-46.0) Mean Corpuscular Volume 81.2 fL (80.0-100.0) Mean Corpuscular Hemoglobin 28.3 pg (28.0-32.0) Mean Corpuscular Hemoglobin Concent 34.9 g/dL (32.0-36.0) Red Cell Distribution Width 14.8 % (11.8-14.3) Platelet Count 230 10^3/uL (140-450) Mean Platelet Volume 7.8 fL (6.9-10.8) Neutrophils (%) (Auto) 64.7 % (37.0-80.0) Lymphocytes (%) (Auto) 23.7 % (10.0-50.0) Monocytes (%) (Auto) 8.6 % (0.0-12.0) Eosinophils (%) (Auto) 2.4 % (0.0-7.0) Basophils (%) (Auto) 0.6 % (0.0-2.0) Neutrophils # (Auto) 4.3 10 ^3/uL (1.6-8.6) Lymphocytes # (Auto) 1.6 10 ^3/uL (0.4-5.4) Monocytes # (Auto) 0.6 10 ^3/uL (0-1.3) Eosinophils # (Auto) 0.2 10 ^3/uL (0-0.8) Basophils # (Auto) 0 10 ^3/uL (0-0.2) Nucleated Red Blood Cells 0.1 % Sodium Level 141 mmol/L (136-145) Potassium Level 3.9 mmol/L (3.5-5.1) Chloride Level 108 mmol/L (98-107) Carbon Dioxide Level 24 mmol/L (20-31) Anion Gap 9 (5-15) Blood Urea Nitrogen 23 mg/dL (9-23) Creatinine 1.10 mg/dL (0.550-1.02) Glomerular Filtration Rate Calc 49 mL/min (>90) BUN/Creatinine Ratio 20.9 (10.0-20.0) Serum Glucose 159 mg/dL (74-106) Calcium Level 9.1 mg/dL (8.7-10.4) Total Bilirubin 0.4 mg/dL (0.2-1.0) Aspartate Amino Transferase (AST) 17 U/L (13-40) Alanine Aminotransferase (ALT) < 9 U/L (7-40) Alkaline Phosphatase 79 U/L (46-116) Total Protein 5.9 g/dL (5.7-8.2) Albumin 3.5 g/dL (3.2-4.8) Troponin I High Sensitivity 9 ng/L (</=34) Lactic Acid Level 1.2 mmol/L (0.4-2.0) B-Type Natriuretic Peptide 72.07 pg/mL (0-100) Other Laboratory Tests 10/26/24 07:16 Brief Hx & Hospital Course: 84-year-old female with a history of hypercholesterolemia diabetes gallstones chronic low back pain hypertension admitted for cellulitis right lower extremity. Treated with the cefepime. CT right leg is negative DVT right lower extremity ruled out. Blood cultures negative. Wound cultures grew MSSA and E cloacae and patient being discharged on p.o. clindamycin and p.o. Levaquin respectively Consults/Reason for consult None Operations or Procedures CT right leg Venous ultrasound right leg Condition at Discharge: Fair Final Diagnosis/Problems List Cellulitis right lower extremity: Cefepime pain medication, CT right leg negative, DVT right lower extremity ruled out blood cultures negative, wound cultures growing MSSA and E cloacae sensitive to clindamycin and Levaquin respectively Hypertension Chronic low back Diabetes type 2 Hypercholesterolemia History of gallstones Discharge Disposition: Home Discharge Instruct/Medications Diet: Regular Activity: Light activity Follow Up/Referral: Resume all previous home medications Use new medications as prescribed Follow up with the primary Dr Medications: Levaquin Clindamycin [place] Transmitted to [facility] Scheduled Ciprofloxacin Hcl (Cipro), 1 TAB PO BID Clindamycin Hcl (Clindamycin Hcl), 1 CAP PO TID Glipizide (Glipizide Er), 1 TAB PO DAILYPRN, (Reported) Levofloxacin Hemihydrate (Levaquin 500 Mg), 1 TAB PO DAILY Lisinopril (Lisinopril), 1 TAB PO DAILYPRN, (Reported) Scheduled PRN Hydrocodone-Acetaminophen (Hydrocodone Bitartrate/AC 5-325 mg), 1 TAB PO QID PRN Tramadol Hcl (Tramadol Hcl), 50 MG PO Q6HPRN PRN Miscellaneous Medications Simvastatin (Simvastatin), 1 TAB PO, (Reported) 39 (TimeTaken for discharge summary 39 minutes) Discharge Statement: "Patient was advised to return to the ER or call 911 if any headaches, dizziness, shortness of breath, chest pain, abdominal pain, bleeding, fevers, or worsening of medical condition. Patient was counseled about treatment plan, medications, possible side effects, patientverbalized understanding. All questions were answered to the best of my ability. This discharge took greater then 30 minutes in planning, reviewing documentation, counseling the patient, and discussing with other team members." ASSESSMENT ASSESSMENT Hospital Course Improved Assessment Cellulitis right lower extremity: Cefepime pain medication, CT right leg negative, DVT right lower extremity ruled out blood cultures negative, wound cultures growing MSSA and E cloacae sensitive to clindamycin and Levaquin respectively Hypertension Chronic low back Diabetes type 2 Hypercholesterolemia History of gallstones Date of Service: Oct 28, 2024 Billing Provider: CARSON LU MD Common Visit Codes: [id number] DISCH DAY >30min CARSON LU MD Oct 28, 2024 11:51
[2024-10-28 12:17] VITALS: BP 135/61; PULSE 62; RESP 17; TEMP 36.1; O2SAT 97
[2024-10-28 12:43] VITALS: BP 151/48; PULSE 63; RESP 16; TEMP 96.4; O2SAT 97
== END 2024-10-28 20:37 | disposition home or self-care (01) | DRG 603 ==
LOC: ER 16:38 → OVERFLOW 21:22 → CENTRAL 23:53 → WEST WING 10-27 02:23
PROVIDERS: ADMIT Family Medicine; ATTEND Family Medicine
DX: L03.115 Cellulitis of right lower limb (principal); E11.9 Type 2 diabetes mellitus without complications; G89.29 Other chronic pain; K80.20 Calculus of gallbladder without cholecystitis without obstruction; M54.50 Low back pain, unspecified; B95.61 Methicillin susceptible Staphylococcus aureus infection as the cause of diseases classified elsewhere; Z96.651 Presence of right artificial knee joint; E78.00 Pure hypercholesterolemia, unspecified; I10 Essential (primary) hypertension; Z87.442 Personal history of urinary calculi; Z88.6 Allergy status to analgesic agent; Z88.5 Allergy status to narcotic agent
CPT/HCPCS: 36415; 73590; 80048; 80053; 80307; 81001; 83605; 83880; 84484; 85025; 87040; 87077; 87186; 87205; 93971; 96365; G0378